=== PATIENT | male | born 1960 | race Caucasian/White ===

== ENCOUNTER → 2017-01-15 | Outpatient (CLI) | payer OTHER ==
[2017-01-15 09:45] LABS: ALT 76 U/L (21-72); AST 51 U/L (17-59); Cholesterol 173 mg/dL (<200); Creatine Kinase 91 U/L (55-170); HDL Cholesterol 44 mg/dL (40-60)
== END | disposition home or self-care (01) ==
LOC: LABWHC1 08:53
PROVIDERS: ATTEND Internal Medicine Cardiovascular Disease
DX: E78.2 Mixed hyperlipidemia (principal)
CPT/HCPCS: 36415; 80061; 82550; 84450; 84460

== ENCOUNTER → 2017-01-20 | Outpatient (CLI) | payer OTHER ==
--- NOTE | 2017-01-20 17:47 | XR ---
EXAMINATION TYPE: XR chest 2V DATE OF EXAM: 01/20/2017 COMPARISON: 06/27/2014 HISTORY: Cough TECHNIQUE: Frontal and lateral views of the chest are obtained. FINDINGS: Heart and mediastinum are normal. Lungs are clear. Diaphragm is normal. Bony thorax is int act. The pulmonary vascularity is normal. IMPRESSION: Normal chest. No change.
== END | disposition home or self-care (01) ==
LOC: RADXRMAIN 17:14
PROVIDERS: ATTEND Family Medicine
DX: R59.0 Localized enlarged lymph nodes (principal)
CPT/HCPCS: 71020

== ENCOUNTER → 2017-02-10 | Outpatient (CLI) | payer OTHER ==
[2017-02-10 18:22] LABS: Blood Urea Nitrogen 15 mg/dL (9-20); Non-African American GFR(MDRD) >60 (>60 ml/min/1.73 sqM)
--- NOTE | 2017-02-11 07:52 | CT ---
EXAMINATION TYPE: CT abdomen pelvis w con DATE OF EXAM: 02/10/2017 COMPARISON: NONE HISTORY: Right sided mid swelling and Left sided groin swelling per patient. Umbilical hernia per ord er. CT DLP: 1443.4 mGycm, Automated Exposure Control for Dose Reduction was Utilized. CONTRAST: CT scan of the abdomen and pelvis is performed with oral and with IV Contrast, patient injected with 100 mL of Omnipaque 300. FINDINGS: LUNG BASES: No significant abnormality is appreciated. LIVER/GB: Liver is diffusely low dense consistent with fatty infiltration. Prominent left hepatic lob e which is normal variant is noted. PANCREAS: No significant abnormality is seen. SPLEEN: There is tiny splenule lateral to spleen on axial image 22. There is 1.7 cm larger splenule a nterior inferior splenic hilum on axial image 25. ADRENALS: No significant abnormality is seen. KIDNEYS: No significant abnormality is seen. BOWEL: Oral contrast does not reach colonic level. There is no suspicious small or large bowel dilata tion seen. Normal-appearing appendix is seen descending from cecum. PROSTATE/SEMINAL VESICLES: Some central zone calcification is seen in normal size prostate gland. LYMPH NODES: No greater than 1cm abdominal or pelvic lymph nodes are appreciated. OSSEOUS STRUCTURES: No significant abnormality is seen. OTHER: There is mild to moderate calcified plaque in abdominal aorta extending into branch vessels. No suspicious umbilical or ventral wall hernia identified. No discrete inguinal hernia is seen. IMPRESSION: No significant finding is identified to account for patient's symptoms. No hernia is beatrice dent.
== END | disposition home or self-care (01) ==
LOC: RADCTMAIN 17:44
PROVIDERS: ATTEND Surgery
DX: K42.9 Umbilical hernia without obstruction or gangrene (principal)
CPT/HCPCS: 82565; 84520; 74177; 36415; Q9967

== ENCOUNTER → 2017-07-21 | Outpatient (CLI) | payer OTHER ==
--- NOTE | 2017-07-22 07:27 | US ---
EXAMINATION TYPE: US axilla RT DATE OF EXAM: 07/21/2017 COMPARISON: NONE CLINICAL HISTORY: Enlarged Lymph Nodes R59.9. Intermittent right axilla swelling x 1 year Right axilla: appears wnl IMPRESSION: No distinct abnormality identified.
--- NOTE | 2017-07-22 07:28 | US ---
EXAMINATION TYPE: US axilla LT DATE OF EXAM: 07/21/2017 COMPARISON: NONE CLINICAL HISTORY: Enlarged Lymph Nodes R59.9. Intermittent left axilla swelling x 1 year Left axilla: appears wnl IMPRESSION: No discrete abnormality seen.
--- NOTE | 2017-07-22 07:32 | XR ---
EXAMINATION TYPE: XR Hip Complete LT DATE OF EXAM: 07/21/2017 CLINICAL HISTORY: pain TECHNIQUE: AP and frogleg views of the left hip are obtained. COMPARISON: None. FINDINGS: There is no acute fracture/dislocation evident. Focal calcification adjacent to the great er trochanter compatible calcific tendinitis. The joint space appears within normal limits. The ove rlying soft tissue appears unremarkable. IMPRESSION: 1. There is no acute fracture or dislocation.ICD 10 NO FRACTURE, INITIAL EVALUATION
== END | disposition home or self-care (01) ==
LOC: RADUSWWP 15:34
PROVIDERS: ATTEND Family Medicine
DX: M25.552 Pain in left hip (principal); R59.9 Enlarged lymph nodes, unspecified
CPT/HCPCS: 73502

== ENCOUNTER → 2017-08-02 | Outpatient (CLI) | payer OTHER ==
[2017-08-02 19:16] LABS: ALT 75 U/L (21-72); AST 40 U/L (17-59); Albumin 4.8 g/dL (3.5-5.0); Alkaline Phosphatase 63 U/L (38-126); Anion Gap 18 mmol/L; Blood Urea Nitrogen 34 mg/dL (9-20); Calcium 10.6 mg/dL (8.4-10.2); Carbon Dioxide 26 mmol/L (22-30); Chloride 99 mmol/L (98-107); Glucose 154 mg/dL (74-99); Potassium 4.5 mmol/L (3.5-5.1); Sodium 143 mmol/L (137-145); Total Bilirubin 0.5 mg/dL (0.2-1.3); Total Protein 7.9 g/dL (6.3-8.2)
--- NOTE | 2017-08-02 22:36 | CT ---
EXAMINATION TYPE: CT abdomen pelvis w con DATE OF EXAM: 08/02/2017 COMPARISON: 02/10/2017 HISTORY: Enlarged axially and inguinal lymph nodes. CT DLP: 1561 mGycm Automated exposure control for dose reduction was used. TECHNIQUE: Helical acquisition of images was performed from the lung bases through the pelvis. CONTRAST: Performed with Oral Contrast and with IV Contrast, patient injected with 100ml mL of Isovue 300. FINDINGS: Lung bases are clear of consolidation. There is no pleural effusion. Heart size is normal. Liver spleen pancreas gallbladder appear normal. Bile ducts are not dilated. There is no adrenal mass. Kidneys show satisfactory contrast opacification. There is no hydronephrosi s. There is no retroperitoneal adenopathy. There is no ascites. Appendix appears normal. I see no int estinal wall thickening. There are no dilated loops. There are ordinary appearing bilateral inguinal lymph nodes that measure up to 1.3 cm. There is no evidence of a hernia. I see no bony destructive pr ocess. Lumbar spine is intact. IMPRESSION: NEGATIVE CT SCAN OF THE ABDOMEN AND PELVIS. THERE ARE A FEW INGUINAL LYMPH NODES OF DOUBTFUL SIGNIFIC ANCE AND APPEAR UNCHANGED COMPARED TO OLD EXAM.
== END | disposition home or self-care (01) ==
LOC: RADCTMAIN 18:36
PROVIDERS: ATTEND Family Medicine
DX: R59.9 Enlarged lymph nodes, unspecified (principal); I10 Essential (primary) hypertension
CPT/HCPCS: 80053; 74177; 36415; Q9967

== ENCOUNTER 2017-08-05 06:53 | Day surgery (SDC) | payer OTHER ==
[2017-08-03 14:09] VITALS: BMI 34.9
[~2017-08-05 06:53] MED LIST: LACTATED RINGERS 1,000 ML IV SCH
[2017-08-05 07:24] VITALS: TEMP 97.4
[2017-08-05] MEDS ORDERED: LIDOCAINE 1% 20 ML VIAL (10MG/ML) FOR IV START INTRADERMA ONE (07:33)
[2017-08-05 07:46] LABS: Glucose,Whole Blood 233 mg/dL (75-99)
[2017-08-05] MEDS ORDERED: PROPOFOL 10 MG/ML 20 ML VIAL IV ONE (08:27)
--- NOTE | 2017-08-05 08:46 | P.PCN ---
Date of Procedure: 08/05/17 Procedure(s) Performed: BRIEF HISTORY: Patient is a 57-year-old pleasant white male, scheduled for an elective colonoscopy as a part of screening for colorectal neoplasia. PROCEDURE PERFORMED: Colonoscopy. PREOPERATIVE DIAGNOSIS: Screening for colon cancer. IV sedation per Anesthesia. PROCEDURE: After informed consent was obtained, the patient, was brought into the endoscopy unit. IV sedation was administered by Anesthesia under continuous monitoring. Digital rectal examination was normal. Initially the Olympus CF- 160 flexible video colonoscope was then inserted in the rectum, gradually advanced into the cecum without any difficulty. Careful examination was performed as the scope was gradually being withdrawn. Ileocecal valve and the appendiceal orifice were visualized and appeared normal. Prep was excellent. Mucosa of the cecum, ascending colon, transverse colon, descending colon, sigmoid colon, and rectum appeared normal. Retroflexion was performed in the rectum and no lesions were seen. The patient tolerated the procedure well. IMPRESSION: Normal-appearing colon from rectum to cecum with no evidence of colorectal neoplasia . RECOMMENDATIONS: Findings of this examination were discussed with the patient as well as his family. He was advised to have a repeat screening colonoscopy in 10 years.
[2017-08-05 08:53] LABS: Glucose,Whole Blood 219 mg/dL (75-99)
[2017-08-05 08:54] VITALS: BP 126/67; PULSE 70; RESP 14
== END 2017-08-05 09:30 | disposition home or self-care (01) ==
LOC: ORWHC2ENDO 06:53
PROVIDERS: ATTEND Internal Medicine Gastroenterology
DX: Z12.11 Encounter for screening for malignant neoplasm of colon (principal); I10 Essential (primary) hypertension; E78.5 Hyperlipidemia, unspecified; I25.10 Atherosclerotic heart disease of native coronary artery without angina pectoris; E11.9 Type 2 diabetes mellitus without complications; Z79.84 Long term (current) use of oral hypoglycemic drugs; Z79.02 Long term (current) use of antithrombotics/antiplatelets; Z95.5 Presence of coronary angioplasty implant and graft; Z79.82 Long term (current) use of aspirin; Z79.899 Other long term (current) drug therapy
CPT/HCPCS: 45378; J2704

== ENCOUNTER 2017-08-09 03:09 | Emergency (ER) | payer OTHER ==
[2017-08-09] MEDS ORDERED: ONDANSETRON 4 MG/2 ML VIAL IVP STA (03:32)
--- NOTE | 2017-08-09 03:38 | ED ---
Nausea/Vomiting/Diarrhea HPI - General Chief complaint: Nausea/Vomiting/Diarrhea Stated complaint: vomiting Time Seen by Provider: 08/09/17 03:31 Source: patient Mode of arrival: ambulatory Limitations: no limitations - History of Present Illness Initial comments: This patient is a 57-year-old man who presents to be evaluated for the acute onset of severe nausea and vomiting, as well as spinning sensation. He states that things get particularly bad if he tries to move area in particular if he lies back from a seated position or if he goes to a seated position from supine , the symptoms become severe. Things are better if he remains still. He is not having any abdominal pain. No chest pain, palpitations or dyspnea. MD complaint: nausea, vomiting -: hour(s) Associated Abdominal Pain: No Consistency: constant Improves with: rest Worsens with: movement Associated Symptoms: denies other symptoms - Related Data Home Medications Medication Instructions Recorded Confirmed Aspirin 325 mg PO DAILY 06/27/14 08/09/17 Atorvastatin [Lipitor] 20 mg PO HS 08/03/17 08/09/17 Glimepiride [Amaryl] 2 mg PO [id number] 08/03/17 08/09/17 Metoprolol Tartrate [Lopressor] 50 mg PO BID 08/03/17 08/09/17 Olmesartan Medoxomil [Benicar] 40 mg PO DAILY 08/03/17 08/09/17 amLODIPine [Norvasc] 5 mg PO DAILY 08/03/17 08/09/17 Previous Rx's Medication Instructions Recorded Clopidogrel [Plavix] 75 mg PO DAILY #30 tab 07/02/14 metFORMIN HCL 1,000 mg PO BID #0 07/02/14 Meclizine [Antivert] 25 mg PO TID #20 tab 08/09/17 Allergies Allergy/AdvReac Type Severity Reaction Status Date / Time No Known Allergies Allergy Verified 08/09/17 03:16 Review of Systems ROS Statement: Those systems with pertinent positive or pertinent negative responses have been documented in the HPI. ROS Other: All systems not noted in ROS Statement are negative. Constitutional: Denies: fever, chills, weakness Eyes: Denies: eye pain, vision change Respiratory: Denies: cough, dyspnea Cardiovascular: Denies: chest pain, palpitations, edema, syncope Gastrointestinal: Reports: nausea, vomiting. Denies: abdominal pain, diarrhea Genitourinary: Denies: dysuria, hematuria Musculoskeletal: Denies: back pain Skin: Denies: rash Neurological: Reports: vertigo. Denies: headache, weakness, numbness, paresthesias, confusion Past Medical History Past Medical History: Chest Pain / Angina, Diabetes Mellitus, Hyperlipidemia, Sleep Apnea/CPAP/BIPAP History of Any Multi-Drug Resistant Organisms: None Reported Past Surgical History: No Surgical Hx Reported Past Psychological History: No Psychological Hx Reported Smoking Status: Never smoker Past Alcohol Use History: None Reported Past Drug Use History: None Reported General Exam Limitations: no limitations General appearance: alert, in no apparent distress Head exam: Present: atraumatic, normocephalic Eye exam: Present: normal appearance, PERRL, EOMI, nystagmus. Absent: scleral icterus, conjunctival injection ENT exam: Present: normal oropharynx, TM's normal bilaterally, normal external ear exam Neck exam: Present: normal inspection, full ROM Respiratory exam: Present: normal lung sounds bilaterally. Absent: respiratory distress, wheezes, rales, rhonchi, stridor Cardiovascular Exam: Present: regular rate, normal rhythm, normal heart sounds. Absent: systolic murmur, diastolic murmur, rubs, gallop GI/Abdominal exam: Present: soft. Absent: distended, tenderness, guarding, rebound, mass Extremities exam: Present: normal inspection, normal capillary refill. Absent: pedal edema, calf tenderness Back exam: Present: normal inspection. Absent: CVA tenderness (R), CVA tenderness (L) Neurological exam: Present: alert, oriented X3, CN II-XII intact. Absent: motor sensory deficit Skin exam: Present: warm, dry, intact, normal color. Absent: rash Course Vital Signs 08/09/17 08/09/17 08/09/17 03:12 03:36 04:48 Temperature 97.1 F L Pulse Rate 75 74 72 Respiratory 16 16 18 Rate Blood Pressure 175/84 179/88 164/77 O2 Sat by Pulse 99 99 99 Oximetry 08/09/17 08/09/17 05:41 06:44 Temperature Pulse Rate 73 74 Respiratory 14 15 Rate Blood Pressure 143/73 131/70 O2 Sat by Pulse 99 100 Oximetry Medical Decision Making - Medical Decision Making Patient's 57-year-old man with vertiginous symptoms, and severe nausea and vomiting. He has had previous episodes of this but cole's episode was much worse. He was not able to sit forward or lie back without having symptoms come on. He did have relief following meclizine. His workup is normal other than the elevated blood sugar which we did discuss. Patient will have follow-up and we did discuss return parameters. He is feeling better and does want to go home. - Lab Data Result diagrams: 08/09/17 03:29 08/09/17 03:29 Lab Results 08/09/17 08/09/17 08/09/17 Range/Units 03:29 03:29 03:29 WBC 10.5 (3.8-10.6) k/uL RBC 5.06 (4.30-5.90) m/uL Hgb 14.6 (13.0-17.5) gm/dL Hct 43.1 (39.0-53.0) % MCV 85.3 (80.0-100.0) fL MCH 28.8 (25.0-35.0) pg MCHC 33.8 (31.0-37.0) g/dL RDW 12.3 (11.5-15.5) % Plt Count 314 (150-450) k/uL Neutrophils % 64 % Lymphocytes % 23 % Monocytes % 5 % Eosinophils % 4 % Basophils % 0 % Neutrophils # 6.8 (1.3-7.7) k/uL Lymphocytes # 2.4 (1.0-4.8) k/uL Monocytes # 0.6 (0-1.0) k/uL Eosinophils # 0.4 (0-0.7) k/uL Basophils # 0.0 (0-0.2) k/uL Sodium 140 (137-145) mmol/L Potassium 4.5 (3.5-5.1) mmol/L Chloride 102 (98-107) mmol/L Carbon Dioxide 23 (22-30) mmol/L Anion Gap 15 mmol/L BUN 18 (9-20) mg/dL Creatinine 0.80 (0.66-1.25) mg/dL Est GFR (CKD-EPI)AfAm >90 (>60 ml/min/1.73 sqM) Est GFR (CKD-EPI)NonAf >90 (>60 ml/min/1.73 sqM) Glucose 230 H (74-99) mg/dL POC Glucose (mg/dL) (75-99) mg/dL POC Glu Rate Supervisor ID Calcium 9.6 (8.4-10.2) mg/dL Total Bilirubin 0.5 (0.2-1.3) mg/dL AST 38 (17-59) U/L ALT 67 (21-72) U/L Alkaline Phosphatase 74 (38-126) U/L Troponin I <0.012 (0.000-0.034) ng/mL Total Protein 7.4 (6.3-8.2) g/dL Albumin 4.3 (3.5-5.0) g/dL Amylase 54 (30-110) U/L Lipase 92 (23-300) U/L Urine Color Urine Appearance (Clear) Urine pH (5.0-8.0) Ur Specific [place] (1.001-1.035) Urine Protein (Negative) Urine Glucose (UA) (Negative) Urine Ketones (Negative) Urine Blood (Negative) Urine Nitrite (Negative) Urine Bilirubin (Negative) Urine Urobilinogen (<2.0) mg/dL Ur Leukocyte Esterase (Negative) 08/09/17 08/09/17 Range/Units 04:51 05:10 WBC (3.8-10.6) k/uL RBC (4.30-5.90) m/uL Hgb (13.0-17.5) gm/dL Hct (39.0-53.0) % MCV (80.0-100.0) fL MCH (25.0-35.0) pg MCHC (31.0-37.0) g/dL RDW (11.5-15.5) % Plt Count (150-450) k/uL Neutrophils % % Lymphocytes % % Monocytes % % Eosinophils % % Basophils % % Neutrophils # (1.3-7.7) k/uL Lymphocytes # (1.0-4.8) k/uL Monocytes # (0-1.0) k/uL Eosinophils # (0-0.7) k/uL Basophils # (0-0.2) k/uL Sodium (137-145) mmol/L Potassium (3.5-5.1) mmol/L Chloride (98-107) mmol/L Carbon Dioxide (22-30) mmol/L Anion Gap mmol/L BUN (9-20) mg/dL Creatinine (0.66-1.25) mg/dL Est GFR (CKD-EPI)AfAm (>60 ml/min/1.73 sqM) Est GFR (CKD-EPI)NonAf (>60 ml/min/1.73 sqM) Glucose (74-99) mg/dL POC Glucose (mg/dL) 274 H (75-99) mg/dL POC Glu Rate Supervisor ID Thiago Griffin Calcium (8.4-10.2) mg/dL Total Bilirubin (0.2-1.3) mg/dL AST (17-59) U/L ALT (21-72) U/L Alkaline Phosphatase (38-126) U/L Troponin I (0.000-0.034) ng/mL Total Protein (6.3-8.2) g/dL Albumin (3.5-5.0) g/dL Amylase (30-110) U/L Lipase (23-300) U/L Urine Color Yellow Urine Appearance Clear (Clear) Urine pH 5.5 (5.0-8.0) Ur Specific [place] 1.035 (1.001-1.035) Urine Protein Trace H (Negative) Urine Glucose (UA) 4+ H (Negative) Urine Ketones Negative (Negative) Urine Blood Negative (Negative) Urine Nitrite Negative (Negative) Urine Bilirubin Negative (Negative) Urine Urobilinogen <2.0 (<2.0) mg/dL Ur Leukocyte Esterase Negative (Negative) - EKG Data -: EKG Interpreted by Id EKG shows normal: sinus rhythm, axis (Normal), intervals (Normal), QRS complexes (Low-voltage), ST-T waves (Normal) Rate: normal (Rate approximately 74 bpm) Interpretation: other (Old septal infarct) Disposition Clinical Impression: Vertigo Disposition: HOME SELF-CARE Condition: Good Instructions: Vertigo (ED) Prescriptions: Meclizine [Antivert] 25 mg PO TID #20 tab Referrals: Jessica Barton MD [Primary Care Provider] - 1-2 days
[2017-08-09 03:43] LABS: Basophils % (A) 0 %; Eosinophils # (A) 0.4 k/uL (0-0.7); Eosinophils % (A) 4 %; HCT 43.1 % (39.0-53.0); HGB 14.6 gm/dL (13.0-17.5); Lymphocytes # (A) 2.4 k/uL (1.0-4.8); Lymphocytes % (A) 23 %; MCH 28.8 pg (25.0-35.0); MCHC 33.8 g/dL (31.0-37.0); MCV 85.3 fL (80.0-100.0); Monocytes # (A) 0.6 k/uL (0-1.0); Monocytes % (A) 5 %; Neutrophils # (A) 6.8 k/uL (1.3-7.7); Neutrophils % (A) 64 %; Platelet Count 314 k/uL (150-450); RBC 5.06 m/uL (4.30-5.90); RDW 12.3 % (11.5-15.5); WBC 10.5 k/uL (3.8-10.6)
[2017-08-09] MEDS ORDERED: RX INFO: IV CONTRAST WAS GIVEN 1 EACH MISC MISCELLANE PRN (03:49)
[2017-08-09] MEDS ORDERED: METOCLOPRAMIDE 5 MG/ML 2 ML VIAL IVP STA (03:53)
[2017-08-09 03:54] LABS: ALT 67 U/L (21-72); AST 38 U/L (17-59); Albumin 4.3 g/dL (3.5-5.0); Alkaline Phosphatase 74 U/L (38-126); Amylase 54 U/L (30-110); Anion Gap 15 mmol/L; Blood Urea Nitrogen 18 mg/dL (9-20); Calcium 9.6 mg/dL (8.4-10.2); Carbon Dioxide 23 mmol/L (22-30); Chloride 102 mmol/L (98-107); Glucose 230 mg/dL (74-99); Lipase 92 U/L (23-300); Potassium 4.5 mmol/L (3.5-5.1); Sodium 140 mmol/L (137-145); Total Bilirubin 0.5 mg/dL (0.2-1.3); Total Protein 7.4 g/dL (6.3-8.2)
[2017-08-09] MEDS ORDERED: INSULIN REGULAR 100 UNIT/ML VIAL SQ STA (04:08)
--- NOTE | 2017-08-09 04:29 | CT ---
EXAM: CT Angiography Head With Intravenous Contrast CLINICAL HISTORY: ITS.REASON CT Reason: assess vertebrobasilar circulation TECHNIQUE: Axial computed tomographic angiography images of the head with intravenous contrast using CT angiography protocol. CTDI is 102.2 mGy and DLP is 122.1 mGy-cm. This CT exam was performed using one or more of the following dose reduction techniques: automated exposure control, adjustment of the mA and/or kV according to patient size, and/or use of iterative reconstruction technique. MIP reconstructed images were created and reviewed. COMPARISON: 02/06/16 FINDINGS: Right internal carotid artery: No acute findings. Intracranial segment is patent with no significant stenosis. No aneurysm. Right anterior cerebral artery: Unremarkable. No occlusion or significant stenosis. No aneurysm. Right middle cerebral artery: Unremarkable. No occlusion or significant stenosis. No aneurysm. Right posterior cerebral artery: Unremarkable. No occlusion or significant stenosis. No aneurysm. Right vertebral artery: Unremarkable as visualized. Left internal carotid artery: No acute findings. Intracranial segment is patent with no significant stenosis. No aneurysm. Left anterior cerebral artery: Unremarkable. No occlusion or significant stenosis. No aneurysm. Left middle cerebral artery: Unremarkable. No occlusion or significant stenosis. No aneurysm. Left posterior cerebral artery: Unremarkable. No occlusion or significant stenosis. No aneurysm. Left vertebral artery: Unremarkable as visualized. Basilar artery: Unremarkable. No occlusion or significant stenosis. No aneurysm. No intracranial hemorrhage, mass, or shift in midline structure. IMPRESSION: Normal head CTA.
[2017-08-09 04:56] LABS: Glucose,Whole Blood 274 mg/dL (75-99)
[2017-08-09 05:16] LABS: Appearance,Urine Clear (Clear); Bilirubin,Urine Negative (Negative); Blood,Urine Negative (Negative); Color,Urine Yellow; Glucose,Urine (UA) 4+ (Negative); Ketones,Urine Negative (Negative); Leukocyte Esterase,Urine Negative (Negative); Nitrite,Urine Negative (Negative); PH, Urine 5.5 (5.0-8.0); Protein,Urine Trace (Negative); Specific Gravity,Urine 1.035 (1.001-1.035); Urobilinogen,Urine <2.0 mg/dL (<2.0)
[2017-08-09] MEDS ORDERED: MECLIZINE 12.5 MG TAB PO STA (05:36)
[2017-08-09 06:46] VITALS: BP 131/70; PULSE 74; RESP 15
[2017-08-09 07:13] VITALS: TEMP 97.4
== END 2017-08-09 07:13 | disposition home or self-care (01) ==
LOC: EC 03:09
DX: R42 Dizziness and giddiness (principal); H55.00 Unspecified nystagmus; R11.2 Nausea with vomiting, unspecified; E11.65 Type 2 diabetes mellitus with hyperglycemia; E78.5 Hyperlipidemia, unspecified; G47.30 Sleep apnea, unspecified; Z79.4 Long term (current) use of insulin; Z79.82 Long term (current) use of aspirin; Z79.84 Long term (current) use of oral hypoglycemic drugs; Z79.899 Other long term (current) drug therapy; Z86.79 Personal history of other diseases of the circulatory system; Z99.89 Dependence on other enabling machines and devices
CPT/HCPCS: 36415; 93005; 80053; 82150; 83690; 84484; 85025; 81003; 70496; 99284; 96374; 96375; J2765; J2405; Q9967

== ENCOUNTER → 2018-11-04 | Outpatient (CLI) | payer OTHER ==
[2018-11-04 17:03] LABS: African American GFR (CKD) 97.1 (60.0-200.0); Albumin 4.4 g/dL (3.80-4.90); Albumin/Globulin Ratio 2.1 (1.60-3.17); Anion Gap 10.8 mmol/L (4.00-12.00); Calcium 9.6 mg/dL (8.7-10.3); Carbon Dioxide 23.2 mmol/L (21.6-31.8); Globulin 2.1 g/dL (1.6-3.3); LDL Cholesterol,Calculated 145.4 mg/dL (0.0-131.0); Potassium 4.4 mmol/L (3.5-5.5); Total Bilirubin 0.7 mg/dL (0.3-1.2); Total Protein 6.5 g/dL (6.2-8.2); VLDL Calculation 38.6 mg/dL (5.00-40.00)
[2018-11-04 21:07] LABS: Hemoglobin A1C 8.7 % (4.0-6.0)
== END | disposition home or self-care (01) ==
LOC: LABWHC1 08:43
PROVIDERS: ATTEND Internal Medicine Endocrinology, Diabetes & Metabolism
DX: E11.65 Type 2 diabetes mellitus with hyperglycemia (principal)
CPT/HCPCS: 36415; 80053; 80061; 82043; 82570; 83036; 84443

== ENCOUNTER → 2019-05-19 | Outpatient (CLI) | payer OTHER ==
[2019-05-19 17:40] LABS: African American GFR (CKD) 110.3 (60.0-200.0); Albumin 4.5 g/dL (3.80-4.90); Albumin/Globulin Ratio 2.25 (1.60-3.17); Anion Gap 9.7 mmol/L (4.00-12.00); BUN/Creat Ratio 16.67 Ratio (12.00-20.00); Calcium 9.2 mg/dL (8.7-10.3); Carbon Dioxide 26.3 mmol/L (21.6-31.8); Chol/HDL Ratio 4.96; Non-African American GFR(CKD) 95.1 (60.0-200.0); Potassium 4.5 mmol/L (3.5-5.5); Total Bilirubin 0.7 mg/dL (0.2-1.2); Total Protein 6.5 g/dL (6.2-8.2)
[2019-05-19 18:18] LABS: Hemoglobin A1C 8.9 % (4.0-6.0)
== END ==
LOC: LABWHC1 09:21
PROVIDERS: ATTEND Internal Medicine Endocrinology, Diabetes & Metabolism
DX: E11.65 Type 2 diabetes mellitus with hyperglycemia (principal)
CPT/HCPCS: 36415; 80053; 80061; 82043; 82570; 83036; 84443

== ENCOUNTER → 2019-11-19 | Outpatient (CLI) | payer OTHER ==
[2019-11-19 15:26] LABS: African American GFR (CKD) 77.3 (60.0-200.0); Albumin 4.7 g/dL (3.80-4.90); Albumin/Globulin Ratio 1.88 (1.60-3.17); Anion Gap 9.2 mmol/L (4.00-12.00); BUN/Creat Ratio 14.17 Ratio (12.00-20.00); Bilirubin, Conjugated 0.2 mg/dL (0.20-0.40); Bilirubin,Unconjugated 0.6 mg/dL; Calcium 9.8 mg/dL (8.7-10.3); Carbon Dioxide 29.8 mmol/L (21.6-31.8); Chol/HDL Ratio 5.53; Globulin 2.5 g/dL (1.6-3.3); LDL Cholesterol,Calculated 168.4 mg/dL (0.0-131.0); Non-African American GFR(CKD) 66.7 (60.0-200.0); Potassium 4.8 mmol/L (3.5-5.5); Total Bilirubin 0.8 mg/dL (0.3-1.2); Total Protein 7.2 g/dL (6.2-8.2); VLDL Calculation 53.6 mg/dL (5.00-40.00)
[2019-11-19 16:00] LABS: Hepatitis A Antibody IgM Non-Reactive (Non-Reactive); Hepatitis B Core IgM Non-Reactive (Non-Reactive); Hepatitis B Surface Antigen Non-Reactive (Non-Reactive); Hepatitis C IgG Antibody Non-Reactive (Non-Reactive)
[2019-11-20 16:39] LABS: Hemoglobin A1C 10.3 % (4.0-6.0)
== END | disposition home or self-care (01) ==
LOC: LABWHC1 08:03
PROVIDERS: ATTEND Family Medicine
DX: E11.65 Type 2 diabetes mellitus with hyperglycemia (principal); E78.5 Hyperlipidemia, unspecified; R79.89 Other specified abnormal findings of blood chemistry
CPT/HCPCS: 36415; 80053; 80061; 80074; 82043; 82248; 82570; 82977; 83036; 84443

== ENCOUNTER → 2019-12-12 | Outpatient (CLI) | payer OTHER ==
--- NOTE | 2019-12-12 08:35 | US ---
EXAMINATION TYPE: US abdomen complete DATE OF EXAM: 12/12/2019 COMPARISON: NONE CLINICAL HISTORY: R94.5 Abn liver function test. EXAM MEASUREMENTS: Liver Length: 14.5 cm Gallbladder Wall: 0.2 cm CBD: 0.4 cm Spleen: 12.1 cm Right Kidney: 11.9 x 5.1 x 5.5 cm Left Kidney: 11.8 x 5.4 x 5.5 cm Patient of large body habitus carrying most of his weight in his abdomen. Severe overlying bowel gas, technically difficult limited study. Pancreas: Obscured by bowel gas Liver: Increased attenuation, decreased visualization of vessels suggestive of fatty infiltrate Gallbladder: No stones seen Evidence for sonographic Monroy's sign: no CBD: wnl, very limited visualization Spleen: wnl Right Kidney: No hydronephrosis or masses seen Left Kidney: No hydronephrosis or masses seen Upper IVC: wnl Abd Aorta: Obscured by overlying bowel gas/obesity IMPRESSION: 1. Visualized abdomen ultrasound is unremarkable. There is limitation due to bowel gas body habitus.
== END | disposition home or self-care (01) ==
LOC: RADUSWWP 07:11
PROVIDERS: ATTEND Family Medicine
DX: R14.3 Flatulence (principal)
CPT/HCPCS: 76700

== ENCOUNTER → 2020-04-04 | Outpatient (CLI) | payer OTHER ==
[2020-04-04 09:03] LABS: Basophils # (A) 0.1 k/uL (0-0.2); Basophils % (A) 1 %; Eosinophils # (A) 0.2 k/uL (0-0.7); Eosinophils % (A) 3 %; HCT 45.7 % (39.0-53.0); HGB 14.6 gm/dL (13.0-17.5); Lymphocytes # (A) 1.6 k/uL (1.0-4.8); Lymphocytes % (A) 18 %; MCH 28.9 pg (25.0-35.0); MCHC 31.9 g/dL (31.0-37.0); MCV 90.7 fL (80.0-100.0); Mean Platelet Volume 7.3; Monocytes # (A) 0.4 k/uL (0-1.0); Monocytes % (A) 4 %; Neutrophils # (A) 6.3 k/uL (1.3-7.7); Neutrophils % (A) 73 %; Platelet Count 284 k/uL (150-450); RBC 5.04 m/uL (4.30-5.90); RDW 12.6 % (11.5-15.5); WBC 8.7 k/uL (3.8-10.6)
[2020-04-04 09:25] LABS: Appearance,Urine Clear (Clear); Bilirubin,Urine Negative (Negative); Blood,Urine Negative (Negative); Color,Urine Yellow; Glucose,Urine (UA) 1+ (Negative); Ketones,Urine Negative (Negative); Leukocyte Esterase,Urine Negative (Negative); Mucus,Urine Rare /hpf; Nitrite,Urine Negative (Negative); PH, Urine 5.5 (5.0-8.0); Protein,Urine 1+ (Negative); RBC,Urine 1 /hpf (0-5); Specific Gravity,Urine 1.022 (1.001-1.035); Squamous Epithelial Cell,Urine <1 /hpf (0-4); Urobilinogen,Urine <2.0 mg/dL (<2.0); WBC,Urine 1 /hpf (0-5)
[2020-04-04 10:30] LABS: Erythrocyte Sedimentation Rate 12 mm/hr (0-15)
[2020-04-04 15:33] LABS: African American GFR (CKD) 85.9 (60.0-200.0); Albumin 4.6 g/dL (3.80-4.90); Albumin/Globulin Ratio 1.92 (1.60-3.17); Anion Gap 8.7 mmol/L (4.00-12.00); BUN/Creat Ratio 12.73 Ratio (12.00-20.00); Calcium 9.5 mg/dL (8.7-10.3); Carbon Dioxide 28.3 mmol/L (21.6-31.8); Chol/HDL Ratio 5.33; Globulin 2.4 g/dL (1.6-3.3); LDL Cholesterol,Calculated 167.2 mg/dL (0.0-131.0); Magnesium 1.6 mg/dL (1.5-2.4); Non-African American GFR(CKD) 74.1 (60.0-200.0); Potassium 4.5 mmol/L (3.5-5.5); Total Bilirubin 0.5 mg/dL (0.3-1.2); Uric Acid 6.8 mg/dL (3.7-8.7); VLDL Calculation 31.8 mg/dL (5.00-40.00)
[2020-04-04 15:36] LABS: Hemoglobin A1C 9.2 % (4.0-6.0)
[2020-04-04 17:37] LABS: Urine Creatinine 171.9 mg/dL
[2020-04-07 14:38] LABS: C-ANCA <1:20 Titer (<1:20)
== END | disposition home or self-care (01) ==
LOC: LABWHC1 08:15
PROVIDERS: ATTEND Internal Medicine Endocrinology, Diabetes & Metabolism
DX: E11.65 Type 2 diabetes mellitus with hyperglycemia (principal); I10 Essential (primary) hypertension; E78.5 Hyperlipidemia, unspecified; R79.89 Other specified abnormal findings of blood chemistry; R21 Rash and other nonspecific skin eruption; Z79.899 Other long term (current) drug therapy
CPT/HCPCS: 36415; 80053; 80061; 81001; 82043; 82306; 82550; 82570; 82977; 83036; 83615; 83735; 84443; 84550; 85025; 85652; 86038; 86140; 86255

== ENCOUNTER 2020-09-04 09:03 | Observation (INO) | payer OTHER ==
[2020-09-04 09:18] LABS: Glucose,Whole Blood 410 mg/dL (75-99)
--- NOTE | 2020-09-04 09:39 | ED ---
General Adult HPI - General Chief complaint: Neuro Symptoms/Deficit Stated complaint: trouble using arms & legs/lightheaded Time Seen by Provider: 09/04/20 09:29 Source: patient, family Mode of arrival: ambulatory Limitations: no limitations - History of Present Illness Initial comments: Dictation was produced using [employer] dictation software. please excuse any grammatical, word or spelling errors. This patient was cared for during a federal and state declared state of emergency secondary to Covid 19 Chief Complaint: 52-year-old male past medical history of coronary artery disease dyslipidemia presents today with right-sided episodic ataxia History of Present Illness: Patient is a 60-year-old male he has multiple comorbidities. Patient states today he had a episode where he felt like his right leg was given out. Furthermore he is at work when at around 7 AM he had discoordination with right upper extremity extended computer and was unable to find a keyboard with his right upper extremity. Patient states that while in e mergency department his symptoms resolve. His family members at bedside reports that he does appear to be at baseline. He denies any symptoms currently. States that earlier when his initial symptoms began he was unable to walk. States that he feels like his breathing is in a fog. Denies any pain complaints. The ROS documented in this emergency department record has been reviewed and confirmed by me. Those systems with pertinent positive or negative responses have been documented in the HPI. All other systems are other negative and/or noncontributory. PHYSICAL EXAM: General Impression: Alert and oriented x3, not in acute distress HEENT: Normocephalic atraumatic, extra-ocular movements intact, pupils equal and reactive to light bilaterally, mucous membranes moist. Cardiovascular: Heart regular rate and rhythm Chest: Able to complete full sentences, no retractions, no tachypnea Abdomen: abdomen soft, non-tender, non-distended, no organomegaly Musculoskeletal: Pulses present and equal in all extremities, no peripheral edema Motor: no focal deficits noted Neurological: CN II-XII grossly intact, no focal motor or sensory deficits noted, NIH of 0, gait intact, non-gait ataxic, all extremity non-ataxic, equal and full strength of all extremities, no drift. Skin: Intact with no visualized rashes Psych: Normal affect and mood ED course: 80-year-old male presents to the emergency department after episode of right-sided ataxia vital signs upon arrival are within acceptable limits. Patient's neurologic exam is completely benign. NIH of 0. Clinical presentation concerning for transient ischemic attack. Laboratory evaluation obtained. CBC unremarkable. Coag panel same. Metabolic panel shows all and a gap acidosis. His glucose is 428. Rest of labs unremarkable. Computed tomography scan of the brain shows no acute processes. Chest x-ray is nonacute. Patient reevaluated at bedside and found to be in stable medical condition. Patient has multiple stroke risk factors. We'll have patient admitted for neurologic consultation. Patient given aspirin. Patient is agreeable to plan. EKG interpretation: Ventricular rate 82, normal sinus rhythm, IL interval 140, QRS 82, QTC 420. No IL prolongation, no QTC prolongation, no ST or T-wave changes noted. Overall, this EKG is unremarkable - Related Data Home Medications Medication Instructions Recorded Confirmed Aspirin 325 mg PO DAILY 06/27/14 09/04/20 Glimepiride [Amaryl] 2 mg PO BID 08/03/17 09/04/20 Metoprolol Tartrate [Lopressor] 50 mg PO BID 08/03/17 09/04/20 Ascorbic Acid [Vitamin C] 1,000 mg PO DAILY 09/04/20 09/04/20 Cholecalciferol [Vitamin D3 (25 25 mcg PO DAILY 09/04/20 09/04/20 Mcg = 1000 Iu)] Insulin Glargine,Hum.rec.anlog See Protocol SQ HS 09/04/20 09/04/20 [Lantus Solostar] Moexipril HCl [Univasc] 15 mg PO BID 09/04/20 09/04/20 Multivitamins, Thera [Multivitamin 1 tab PO DAILY 09/04/20 09/04/20 (formulary)] Previous Rx's Medication Instructions Recorded metFORMIN HCL 1,000 mg PO BID #0 07/02/14 Allergies Allergy/AdvReac Type Severity Reaction Status Date / Time No Known Allergies Allergy Verified 09/04/20 10:34 Review of Systems ROS Statement: Those systems with pertinent positive or pertinent negative responses have been documented in the HPI. ROS Other: All systems not noted in ROS Statement are negative. Past Medical History Past Medical History: Chest Pain / Angina, Diabetes Mellitus, Hyperlipidemia, Sleep Apnea/CPAP/BIPAP History of Any Multi-Drug Resistant Organisms: None Reported Past Surgical History: No Surgical Hx Reported Past Psychological History: No Psychological Hx Reported Smoking Status: Never smoker Past Alcohol Use History: Occasional Past Drug Use History: None Reported General Exam Limitations: no limitations Course Vital Signs 09/04/20 09/04/20 09:09 10:09 Temperature 98.6 F Pulse Rate 84 86 Respiratory 18 16 Rate Blood Pressure 173/88 168/79 O2 Sat by Pulse 99 100 Oximetry Medical Decision Making - Lab Data Result diagrams: 09/04/20 09:41 09/04/20 09:41 Lab Results 09/04/20 09/04/20 09/04/20 Range/Units 09:17 09:41 09:41 WBC 8.8 (3.8-10.6) k/uL RBC 4.93 (4.30-5.90) m/uL Hgb 15.1 (13.0-17.5) gm/dL Hct 44.2 (39.0-53.0) % MCV 89.6 (80.0-100.0) fL MCH 30.6 (25.0-35.0) pg MCHC 34.1 (31.0-37.0) g/dL RDW 12.3 (11.5-15.5) % Plt Count 271 (150-450) k/uL MPV 7.4 Neutrophils % 75 % Lymphocytes % 15 % Monocytes % 6 % Eosinophils % 3 % Basophils % 1 % Neutrophils # 6.6 (1.3-7.7) k/uL Lymphocytes # 1.3 (1.0-4.8) k/uL Monocytes # 0.5 (0-1.0) k/uL Eosinophils # 0.3 (0-0.7) k/uL Basophils # 0.1 (0-0.2) k/uL PT 9.5 (9.0-12.0) sec INR 0.9 (<1.2) APTT 21.7 L (22.0-30.0) sec Sodium (137-145) mmol/L Potassium (3.5-5.1) mmol/L Chloride (98-107) mmol/L Carbon Dioxide (22-30) mmol/L Anion Gap mmol/L BUN (9-20) mg/dL Creatinine (0.66-1.25) mg/dL Est GFR (CKD-EPI)AfAm (>60 ml/min/1.73 sqM) Est GFR (CKD-EPI)NonAf (>60 ml/min/1.73 sqM) Glucose (74-99) mg/dL POC Glucose (mg/dL) 410 H (75-99) mg/dL POC Glu [employer] ID Robert Moreau Calcium (8.4-10.2) mg/dL Magnesium (1.6-2.3) mg/dL Troponin I (0.000-0.034) ng/mL 09/04/20 09/04/20 Range/Units 09:41 09:41 WBC (3.8-10.6) k/uL RBC (4.30-5.90) m/uL Hgb (13.0-17.5) gm/dL Hct (39.0-53.0) % MCV (80.0-100.0) fL MCH (25.0-35.0) pg MCHC (31.0-37.0) g/dL RDW (11.5-15.5) % Plt Count (150-450) k/uL MPV Neutrophils % % Lymphocytes % % Monocytes % % Eosinophils % % Basophils % % Neutrophils # (1.3-7.7) k/uL Lymphocytes # (1.0-4.8) k/uL Monocytes # (0-1.0) k/uL Eosinophils # (0-0.7) k/uL Basophils # (0-0.2) k/uL PT (9.0-12.0) sec INR (<1.2) APTT (22.0-30.0) sec Sodium 135 L (137-145) mmol/L Potassium 4.8 (3.5-5.1) mmol/L Chloride 102 (98-107) mmol/L Carbon Dioxide 19 L (22-30) mmol/L Anion Gap 14 mmol/L BUN 19 (9-20) mg/dL Creatinine 1.06 (0.66-1.25) mg/dL Est GFR (CKD-EPI)AfAm 90 (>60 ml/min/1.73 sqM) Est GFR (CKD-EPI)NonAf 78 (>60 ml/min/1.73 sqM) Glucose 428 H (74-99) mg/dL POC Glucose (mg/dL) (75-99) mg/dL POC Glu [employer] ID Calcium 9.5 (8.4-10.2) mg/dL Magnesium 1.7 (1.6-2.3) mg/dL Troponin I <0.012 (0.000-0.034) ng/mL Disposition Clinical Impression: TIA (transient ischemic attack) Disposition: ADMITTED IP TO THIS HOSP Condition: Fair Referrals: Jessica Barton MD [Primary Care Provider] - 1-2 days Decision Time: 10:46
[2020-09-04 09:58] LABS: Basophils # (A) 0.1 k/uL (0-0.2); Basophils % (A) 1 %; Eosinophils # (A) 0.3 k/uL (0-0.7); Eosinophils % (A) 3 %; HCT 44.2 % (39.0-53.0); HGB 15.1 gm/dL (13.0-17.5); Lymphocytes # (A) 1.3 k/uL (1.0-4.8); Lymphocytes % (A) 15 %; MCH 30.6 pg (25.0-35.0); MCHC 34.1 g/dL (31.0-37.0); MCV 89.6 fL (80.0-100.0); Mean Platelet Volume 7.4; Monocytes # (A) 0.5 k/uL (0-1.0); Monocytes % (A) 6 %; Neutrophils # (A) 6.6 k/uL (1.3-7.7); Neutrophils % (A) 75 %; Platelet Count 271 k/uL (150-450); RBC 4.93 m/uL (4.30-5.90); RDW 12.3 % (11.5-15.5); WBC 8.8 k/uL (3.8-10.6)
--- NOTE | 2020-09-04 10:06 | XR ---
EXAMINATION TYPE: XR chest 1V portable DATE OF EXAM: 09/04/2020 COMPARISON: NONE HISTORY: CVA TECHNIQUE: Single frontal view of the chest is obtained. FINDINGS: There is no focal air space opacity, pleural effusion, or pneumothorax seen. The cardiac silhouette size is within normal limits. The osseous structures are intact. IMPRESSION: No acute process.
--- NOTE | 2020-09-04 10:14 | CT ---
EXAMINATION TYPE: CT brain wo con DATE OF EXAM: 09/04/2020 COMPARISON: 08/09/2017. HISTORY: Right sided arm and leg numbness. CT DLP: 1141.4 mGycm Automated exposure control for dose reduction was used. FINDINGS: There is no acute intracranial hemorrhage, mass effect, or midline shift identified. The ventricles and sulci are within normal limits in size. The globes are intact and the visualized sinuses are monica ar. IMPRESSION: No acute intracranial hemorrhage, mass effect, or midline shift is seen. If concern for acute ischemi a consider MRI as clinically warranted.
[2020-09-04 10:16] LABS: INR 0.9 (<1.2); Prothrombin Time 9.5 sec (9.0-12.0)
[2020-09-04 10:27] LABS: Partial Thromboplastin Time 21.7 sec (22.0-30.0)
[2020-09-04 10:36] LABS: Calcium 9.5 mg/dL (8.4-10.2); Magnesium 1.7 mg/dL (1.6-2.3); Potassium 4.8 mmol/L (3.5-5.1)
[2020-09-04] MEDS ORDERED: SODIUM CHLORIDE 0.9% 1,000 ML IV STA (10:39)
[2020-09-04] MEDS ORDERED: ASPIRIN 81 MG PO STA (10:44)
[2020-09-04] MEDS ORDERED: NALOXONE 0.4 MG/ML 1 ML VIAL IV PRN (10:47)
[2020-09-04] MEDS ORDERED: SODIUM CHLORIDE 0.9% 1,000 ML IV SCH (11:00)
[2020-09-04] MEDS ORDERED: ATORVASTATIN 80 MG TAB PO STA (11:45)
[2020-09-04] MEDS: CHOLECALCIFEROL 25 MCG (1000 IU) TABLET PO SCH (12:21)
[2020-09-04] MEDS: ASCORBIC ACID 500 MG TAB PO SCH (12:21)
[2020-09-04] MEDS: SODIUM CHLORIDE 0.9% 1,000 ML IV SCH ×2 (12:22→21:03)
[2020-09-04 12:29] LABS: Glucose,Whole Blood 258 mg/dL (75-99)
[2020-09-04 12:29] LABS: Cholesterol 270 mg/dL (<200); HDL Cholesterol 40 mg/dL (40-60); LDL Cholesterol,Calculated 151 mg/dL (0-99); Triglycerides 397 mg/dL (<150)
[2020-09-04] MEDS: ENOXAPARIN 40 MG/0.4 ML SYRINGE SQ SCH (12:35)
[2020-09-04] MEDS: INSULIN ASPART (NovoLOG) 100 UNIT/ML VIAL SQ SCH ×3 (12:36→21:01)
[2020-09-04] MEDS ORDERED: CLOPIDOGREL 75 MG TAB PO STA (12:43)
--- NOTE | 2020-09-04 12:52 | US ---
EXAMINATION TYPE: US carotid duplex BILAT DATE OF EXAM: 09/04/2020 COMPARISON: NONE CLINICAL HISTORY: TIA. right leg weakness and inability to type EXAM MEASUREMENTS: RIGHT: Peak Systolic Velocity (PSV) cm/sec ----- Right CCA: 77.3 ----- Right ICA: 122.0 ----- Right ECA: 147.0 ICA/CCA ratio: 1.6 RIGHT: End Diastole cm/sec ----- Right CCA: 14.6 ----- Right ICA: 44.4 ----- Right ECA: 17.7 LEFT: Peak Systolic Velocity (PSV) cm/sec ----- Left CCA: 96.3 ----- Left ICA: 97.1 ----- Left ECA: 140.2 ICA/CCA ratio: 1.0 LEFT: End Diastole cm/sec ----- Left CCA: 18.2 ----- Left ICA: 34.4 ----- Left ECA: 18.5 VERTEBRALS (direction of flow): Right Vertebral: Antegrade Left Vertebral: Antegrade Rhythm: Normal Mild homogeneous plaque with no significant stenosis seen IMPRESSION: 1. Mild homogeneous plaque with no significant hemodynamic stenosis. Criteria for Assigning % of Stenosis / Diameter reduction (Estimation based on the indirect measurements of the internal carotid artery velocities (ICA PSV). 1. Normal (no stenosis)=ICA PSV < 125 cm/s: ratio < 2.0: ICA EDV<40 cm/s. 2. Less than 50% stenosis=ICA PSV < 125 cm/s: ratio < 2.0: ICA EDV<40 cm/s. 3. 50 to 69% stenosis=ICA PSV of 125 to 230 cm/s: ration 2.0 ? 4.0: ICA EDV 40-100 cm/s. 4. Greater than 70% stenosis to near occlusion= ICA PSV > 230 cm/s: ratio > 4.0: ICA EDV > 100 cm/s. 5. Near occlusion= ICA PSV velocities may be low or undetectable: variable ratio and ICA EDV. 6. Total occlusion=unable to detect flow.
--- NOTE | 2020-09-04 12:56 | P.CNNES ---
History of Present Illness Consult date: 09/04/20 Requesting physician: John Garcia Reason for Consult: Transient Right leg weakness with ataxia over right side concern for TIA. History of Present Illness: This is a 60-year-old gentleman with medical history of diabetes mellitus (for the past 15 years), hyperlipidemia, coronary artery disease, sleep apnea that presented to the emergency department on 09/04/2020 for right-sided weakness and ataxia. He was accompanied by his who is at bedside. The patient stated today at around 7am while at work he does that his entire look right lower extremity gave out and the episode lasted for about 3 minutes. Then the afterwards within 4 minutes he felt when he was trying to use the mouse and typing on the keyboard he felt like he could not control the right hand and he felt was a kind of clumsy but did not feel like was weak week by just felt clumsy and felt was con ataxic. He also felt he was having difficulty with his words as if like he slurring. This episode also lasted for the a few minutes then resolved. He felt normal until 9:00 in which his right leg gave out again and lasted few minutes then resolved. Currently he denies of any further weakness or ataxia. Denies of any sensory loss. Patient stated that he does not have any visual disturbance. But because of his diabetes and it on con trolled he has blurry vision but otherwise no visual disturbance during today's episode that. He had a similar episode in which she had right leg weakness and was briefly for a few minutes and that was about 2 days ago and it resolved and he didn't seek any medical attention. He denies of any stroke or TIAs in the past. He stated that he is on aspirin 325 daily and he is compliant with the medication. He said that he is prescribed statin but not sure what the name of the medication but he said that the it gives him mild joint pain so he does not take the medication. His sugar he stated that is not controlled. He denies of tobacco use. He drinks about the 2 cans of beer a day but on the weekend he might drink more. Workup in the hospital consisted of: Initial vital signs: Blood pressure of 173/80, heart rate of 84, respiratory of 18, temperature of 98.6 Fahrenheit oral and the pulse ox of 99% room air. CT of the head is reported as no acute intracranial hemorrhage, mass effect or midline shift is seen. If concern for acute ischemia consider MRI as clinically warranted. EKG is reported as normal sinus rhythm at. Septal infarct, age undetermined. Abnormal EKG. Initial POC glucose is 410 and the serum glucose was 428 that. Otherwise the sodium was 135 which is minimally low at the what the rest of the basic CBC and the metabolic labs are within normal. Review of Systems Review of system: The 12 point system was reviewed and apparent positive and negative per HPI. Past Medical History Past Medical History: Chest Pain / Angina, Diabetes Mellitus, Hyperlipidemia, Sleep Apnea/CPAP/BIPAP History of Any Multi-Drug Resistant Organisms: None Reported Past Surgical History: No Surgical Hx Reported Past Psychological History: No Psychological Hx Reported Smoking Status: Never smoker Past Alcohol Use History: Occasional Past Drug Use History: None Reported Medications and Allergies Home Medications Medication Instructions Recorded Confirmed Type Aspirin 325 mg PO DAILY 06/27/14 09/04/20 History metFORMIN HCL 1,000 mg PO BID #0 07/02/14 09/04/20 Rx Glimepiride [Amaryl] 2 mg PO BID 08/03/17 09/04/20 History Metoprolol Tartrate [Lopressor] 50 mg PO BID 08/03/17 09/04/20 History Ascorbic Acid [Vitamin C] 1,000 mg PO DAILY 09/04/20 09/04/20 History Cholecalciferol [Vitamin D3 (25 25 mcg PO DAILY 09/04/20 09/04/20 History Mcg = 1000 Iu)] Insulin Glargine,Hum.rec.anlog See Protocol SQ HS 09/04/20 09/04/20 History [Lantus Solostar] Moexipril HCl [Univasc] 15 mg PO BID 09/04/20 09/04/20 History Multivitamins, Thera [Multivitamin 1 tab PO DAILY 09/04/20 09/04/20 History (formulary)] Allergies Allergy/AdvReac Type Severity Reaction Status Date / Time No Known Allergies Allergy Verified 09/04/20 10:34 Physical Examination - Vital Signs Vital Signs: Vital Signs Temp Pulse Resp BP Pulse Ox 09/04/20 11:09 87 16 169/78 96 09/04/20 10:09 86 16 168/79 100 09/04/20 09:09 98.6 F 84 18 173/88 99 Intake and Output 09/03/20 09/04/20 09/04/20 22:59 06:59 14:59 Other: Weight 102.058 kg GENERAL: The patient is lying in bed and is not in acute distress. CHEST: The heart rate is regular rate rhythm. No murmurs to auscultation. No carotid bruit bilaterally. LUNG: Clear to auscultation bilaterally no wheezing noted throughout. Not labored breathing. ABDOMEN/GI: Bowel sounds present in all 4 quadrants. No tenderness to palpation throughout. NEUROLOGICAL: Higher mental function: The patient is awake, alert, oriented to self, place and time. Patient is following commands. No aphasia and no neglect. Cranial nerves: The pupils are round, equal and reactive to light and accommodation. Visual haskins are full to confrontation throughout. Extraocular movement is intact no nystagmus is noted. Facial sensation is normal to touch throughout. The facial strength is normal throughout. Hearing is normal bilaterally to hand rub. Tongue is midline and moved [id number] without any difficulty. No dysarthria is noted. Shoulder shrug is normal bilaterally. Motor: Gait is deferred. The strength is 5 over 5 throughout. Normal tone and bulk. Cerebellum: Normal finger to nose heel to chin bilaterally. Sensation: Sensation is normal to touch throughout. Reflexes (right/left):2+ throughout. Plantars are downgoing bilaterally. Results - Laboratory Findings CBC and BMP: 09/04/20 09:41 09/04/20 09:41 Abnormal Lab Findings: Abnormal Labs 09/04/20 09/04/20 09/04/20 09:17 09:41 09:41 APTT 21.7 L Sodium 135 L Carbon Dioxide 19 L Glucose 428 H POC Glucose (mg/dL) 410 H Assessment and Plan Assessment: * Transient ischemic attack (with recurrent right leg weakness and ataxia of the right hand. Has similar episode 2 days ago of right leg weakness and resolved). Unknown exact etiology at this time possible his risk factor of CAD, DM, hyperlipidemia and sleep apnea.. * Uncontrolled sugar (sugar in 400's) * Diabetes mellitus * Hyperlipidemia * Coronary artery disease * Sleep apnea Plan: * CT of the head is reported as no acute intracranial hemorrhage, mass effect or midline shift is seen. If concern for acute ischemia consider MRI as clinically warranted. * In the ED the patient received aspirin 324 mg once and was given Lipitor 80 mg once. I started the patient aspirin 325mg daily (home dose) and added Plavix 75mg daily. Patient is to be on dual antiplatelet for 21 days and after 21 days patient to stop aspirin and continue Plavix 75mg daily indefinetily. Loaded him on Plavix at 300 mg once. Started the patient on Lipitor 40 mg qhs (not 80mg since has joint pain). * MR the brain, 2-D echo (notified tech to do with bubble study) and carotid duplex are ordered by the primary team and are pending. * Ordered CTA head and neck STAT. * Also TSH, lipid panel are ordered are pending * Continuous cardiac monitoring is ordered * Every 4 hour neuro checks. * For the first 24 hours and keep the blood pressure permissive. Only treat of the solid blood pressure is more than 2020 and diastolic is more than 110 (this was notified to the patient's nurse). * We'll defer the rest of the medical management to the primary team. * The plan is discussed with the patient and his as well as his nurse. Jelani Johnson M.D. Neuro-hospitalist Time with Patient: Greater than 30
--- NOTE | 2020-09-04 13:59 | CT ---
EXAMINATION TYPE: CT angio head neck DATE OF EXAM: 09/04/2020 HISTORY: Right sided extremity issues. COMPARISON: Carotid ultrasound from earlier today. CTA head August 09, 2017 CT DLP: 905.5 mGycm. Automated Exposure Control for Dose Reduction was Utilized. TECHNIQUE: CTA scan of the head and neck are performed with IV Contrast, patient injected with 75 mL of Isovue 370, axial images are obtained, coronal and sagittal reformatted images are reviewed. Thre e-D reconstructed images are created on an independent workstation and reviewed. FINDINGS: Carotid/Vascular Structures: Mild calcified plaque in the aortic arch. Normal three-vessel origin. No significant plaque or stenosis. Normal origin right common carotid artery from right brachiocephalic artery. No significant plaque or stenosis in the common carotid arteries bilaterally. Mild periphera l calcified plaque bilateral carotid bulbs extending into proximal internal carotid arteries. No sign ificant stenosis in the internal carotid arteries bilaterally. Mild calcified plaque distal supraclin oid segments. Patent external carotid arteries without significant plaque or stenosis. Codominant vertebral arteries patent to basilar junction. No significant focal plaque or stenosis. Pa tent right posterior communicating artery. Hypoplastic left posterior communicating artery. No signif icant focal stenosis or aneurysm. Patent anterior communicating artery. No significant focal plaque o r stenosis in the anterior circulation. Other: No other significant abnormality. IMPRESSION: 1. No significant stenosis in common or internal carotid arteries bilaterally. Mild calcified plaque bilateral carotid bulb level correlates with recent carotid ultrasound study. 2. No significant stenosis or aneurysm at level of [place]. No significant change from prior CTA head.
[2020-09-04] MEDS ORDERED: INSULIN DETEMIR (LEVEMIR) 100 UNIT/ML SYR SQ SCH (14:30)
--- NOTE | 2020-09-04 14:34 | P.HPIM ---
History of Present Illness H&P Date: 09/04/20 Chief Complaint: Right arm and leg weakness This is a 60-year-old male with past medical history noted below significant for underlying diabetes, hyperlipidemia, and coronary artery disease that presented to the emergency room with right-sided weakness. Patient said that he was in his normal health this morning and went to work and while walking to work he noted that his right leg is very weak and is almost giving up on him. He sat down on the chair and felt clumsy and was unable to use his right hand to type on the keyboard. He said that he had weakness in both his arm and leg for a few minutes that soon resolved and patient was able to get up and drive his car back home and asked his to take him to the emergency room. While walking to the emergency room, he notices further weakness in the right lower extremity associated with ataxia. Patient denies any headache. No numbness or tingling anywhere. No recent falls. Patient denies any prior CVA. He is a nonsmoker. He was evaluated in the ER and will be admitted to the hospital for further management of his medical problems noted below. Review of Systems Review of system: 14 points review of systems were obtained and were negative except to what were mentioned in the HPI. Past Medical History Past Medical History: Coronary Artery Disease (CAD), Chest Pain / Angina, Diabetes Mellitus, GERD/Reflux, Hyperlipidemia, Hypertension Additional Past Medical History / Comment(s): IDDM type II, neuropathy bilateral hands/feet occasionally, past foot sores.. History of Any Multi-Drug Resistant Organisms: None Reported Past Surgical History: Heart Catheterization With Stent, Hernia Repair Additional Past Surgical History / Comment(s): 2014 PCI with stent, umbilical hernia repair, colonoscopy Past Anesthesia/Blood Transfusion Reactions: No Reported Reaction Date of Last Stent Placement:: 2014 Smoking Status: Never smoker - Past Family History Father Family Medical History: Vascular Disorder Additional Family Medical History / Comment(s): Father when pt was young of what pt thinks was a cerebral aneurysm. Mother Family Medical History: Cancer Additional Family Medical History / Comment(s): Mother of bone cancer at the age of 80yrs. Medications and Allergies Home Medications Medication Instructions Recorded Confirmed Type Aspirin 325 mg PO DAILY 06/27/14 09/04/20 History metFORMIN HCL 1,000 mg PO BID #0 07/02/14 09/04/20 Rx Glimepiride [Amaryl] 2 mg PO BID 08/03/17 09/04/20 History Metoprolol Tartrate [Lopressor] 50 mg PO BID 08/03/17 09/04/20 History Ascorbic Acid [Vitamin C] 1,000 mg PO DAILY 09/04/20 09/04/20 History Cholecalciferol [Vitamin D3 (25 25 mcg PO DAILY 09/04/20 09/04/20 History Mcg = 1000 Iu)] Insulin Glargine,Hum.rec.anlog See Protocol SQ HS 09/04/20 09/04/20 History [Lantus Solostar] Moexipril HCl [Univasc] 15 mg PO BID 09/04/20 09/04/20 History Multivitamins, Thera [Multivitamin 1 tab PO DAILY 09/04/20 09/04/20 History (formulary)] Allergies Allergy/AdvReac Type Severity Reaction Status Date / Time No Known Allergies Allergy Verified 09/04/20 10:34 Physical Exam Vitals: Vital Signs Temp Pulse Resp BP Pulse Ox 09/04/20 11:09 87 16 169/78 96 09/04/20 10:09 86 16 168/79 100 09/04/20 09:09 98.6 F 84 18 173/88 99 Intake and Output 09/03/20 09/04/20 09/04/20 22:59 06:59 14:59 Other: Weight 102.058 kg General: The patient is awake and alert, in no distress Eye: there is normal conjunctiva bilaterally. Neck: The neck is supple, there is no JVD. Cardiovascular: Normal S1-S2, no S3-S4, no murmurs. Respiratory: Lungs clear to auscultation bilaterally Gastrointestinal: Abdomen is soft, nontender Musculoskeletal: There is no pedal edema. Neurological:. Speech is normal. Skin: Skin is warm and dry Results CBC & Chem 7: 09/04/20 09:41 09/04/20 09:41 Labs: Abnormal Lab Results - Last 24 Hours (Table) 09/04/20 09/04/20 09/04/20 Range/Units 09:17 09:41 09:41 APTT 21.7 L (22.0-30.0) sec Sodium 135 L (137-145) mmol/L Carbon Dioxide 19 L (22-30) mmol/L Glucose 428 H (74-99) mg/dL POC Glucose (mg/dL) 410 H (75-99) mg/dL Triglycerides (<150) mg/dL Cholesterol (<200) mg/dL LDL Cholesterol, Calc (0-99) mg/dL 09/04/20 09/04/20 Range/Units 09:41 12:26 APTT (22.0-30.0) sec Sodium (137-145) mmol/L Carbon Dioxide (22-30) mmol/L Glucose (74-99) mg/dL POC Glucose (mg/dL) 258 H (75-99) mg/dL Triglycerides 397 H (<150) mg/dL Cholesterol 270 H (<200) mg/dL LDL Cholesterol, Calc 151 H (0-99) mg/dL Thrombosis Risk Factor Assmnt - Choose All That Apply Any of the Below Risk Factors Present?: Yes Each Factor Represents 1 point: Age 41-60 years, Obesity (BMI >25) Other Risk Factors: No Other congenital or acquired thrombophilia - If yes, enter type in comment: No Thrombosis Risk Factor Assessment Total Risk Factor Score: 2 Thrombosis Risk Factor Assessment Level: Low Risk Assessment and Plan Assessment: This is a 60-year-old male with past medical history noted below Presented to the emergency room with right sided arm and leg weakness. Patient was evaluated and admitted to the hospital for further management of his medical problems noted below. 1. TIA: Computed tomography scan of the head and CT angiogram of the head and neck in the ER with no acute findings. MRI of the brain ordered. Patient was seen and evaluated by neurology. He is maintained on aspirin at home. Plavix 75 mg daily added to his regimen. Echocardiogram ordered to rule out intracardiac source. PT/OT/speech pathology evaluation ordered. 2. Type 2 diabetes: Blood glucose not well controlled. Hold metformin and continue home dose of glipizide. Sliding scale insulin. A1c ordered. 3. Hyperlipidemia, started on Lipitor 80 mg at bedtime. LDL of 150 4. Essential hypertension, blood pressure not well controlled. Allow permissive hypertension, Resume home regimen and continue to monitor closely 5. Chronic medical problems: Coronary artery disease with prior stent placement, obstructive sleep apnea, obesity DVT prophylaxis with subcu Lovenox
[2020-09-04 17:30] LABS: Glucose,Whole Blood 195 mg/dL (75-99)
[2020-09-04 19:59] LABS: Glucose,Whole Blood 209 mg/dL (75-99)
[2020-09-04] MEDS: METOPROLOL TARTRATE 50 MG TAB PO SCH (21:01)
[2020-09-04] MEDS: lisinopriL 20 MG TAB PO SCH (21:01)
[2020-09-04] MEDS: GLIMEPIRIDE 2 MG TAB PO SCH (21:02)
[2020-09-04 21:14] LABS: Hemoglobin A1C 10.5 % (4.0-6.0)
[2020-09-05 07:23] LABS: Glucose,Whole Blood 161 mg/dL (75-99)
--- NOTE | 2020-09-05 07:41 | ECHOF ---
Referral Reason:TIA please perform bubble study. MEASUREMENTS -------- HEIGHT: 170.2 cm WEIGHT: 106.6 kg BP: RVIDd: 3.0 cm (< 3.3) IVSd: 1.1 cm (0.6 - 1.1) LVIDd: 4.6 cm (3.9 - 5.3) LVPWd: 1.1 cm (0.6 - 1.1) IVSs: 1.4 cm LVIDs: 3.2 cm LVPWs: 1.5 cm Ao Diam: 3.7 cm (2.0 - 3.7) AV Cusp: 1.8 cm (1.5 - 2.6) MV EXCURSION: 18.807 mm (> 18.000) MV EF SLOPE: 155 mm/s (70 - 150) EPSS: 0.2 cm MV E Denzel: 0.59 m/s MV DecT: 173 ms MV A Denzel: 0.72 m/s MV E/A Ratio: 0.82 RAP: 5.00 mmHg RVSP: 11.77 mmHg FINDINGS -------- Sinus rhythm. This was a technically adequate study. LV size, wall thickness and systolic function are normal, with an EF greater than 55%. The left trina tricular size is normal. The right ventricle is normal in size. The left atrial size is normal. The right atrial size is normal. Agitated Saline study is negative, no crossing at atrial level or right to left shunt noted. There is mild aortic valve sclerosis. There is no evidence of aortic regurgitation. The mitral valve is normal. Mild mitral regurgitation is present. The tricuspid valve appears structurally normal. Mild tricuspid regurgitation present. Right vent ricular systolic pressure is normal at < 35 mmHg. There is no pulmonic regurgitation present. The aortic root size is normal. There is no pericardial effusion. CONCLUSIONS -------- 1. LV size, wall thickness and systolic function are normal, with an EF greater than 55%. 2. The left atrial size is normal. 3. Agitated Saline study is negative, no crossing at atrial level or right to left shunt noted. 4. There is mild aortic valve sclerosis. 5. Mild mitral regurgitation is present. 6. Mild tricuspid regurgitation present. 7. There is no pericardial effusion. DATA CAPTURE CLERK: Nuzhat Marshall RDCS
[2020-09-05] MEDS: CHOLECALCIFEROL 25 MCG (1000 IU) TABLET PO SCH (08:58)
[2020-09-05] MEDS: ENOXAPARIN 40 MG/0.4 ML SYRINGE SQ SCH (08:58)
[2020-09-05] MEDS: ASCORBIC ACID 500 MG TAB PO SCH (08:58)
[2020-09-05] MEDS: INSULIN ASPART (NovoLOG) 100 UNIT/ML VIAL SQ SCH (08:58)
[2020-09-05] MEDS ORDERED: CLOPIDOGREL 75 MG TAB PO SCH (09:00)
[2020-09-05] MEDS ORDERED: MULTIVITAMINS, THERA 1 EACH TAB PO SCH (09:00)
[2020-09-05] MEDS ORDERED: ASPIRIN 325 MG TAB PO SCH (09:00)
[2020-09-05] MEDS: GLIMEPIRIDE 2 MG TAB PO SCH (09:01)
[2020-09-05] MEDS: lisinopriL 20 MG TAB PO SCH (09:07)
[2020-09-05] MEDS: METOPROLOL TARTRATE 50 MG TAB PO SCH (09:08)
[2020-09-05 09:59] VITALS: BMI 35.2
--- NOTE | 2020-09-05 11:04 | MR ---
MR brain without contrast HISTORY: Right-sided arm and leg numbness, rule out CVA Multiplanar multisequence imaging of the brain. Correlation to CT brain 09/04/2020 There is no restricted diffusion. Brain volume is age appropriate. Cerebellopontine angles, corpus ca llosum, pituitary, cervical medullary junction are within normal limits. There there are normal vascu lar flow voids. Periventricular scattered hyperintensities are present within the deep white matter o n inversion recovery T2-weighted sequences, approximately 15-20 lesions are present. Largest lesion m easures only approximately 4 mm. Orbits show symmetric appearance. There is no hemorrhage or hydrocep halus. Paranasal sinuses and mastoid air cells are well aerated. IMPRESSION: Nonspecific white matter demyelination of questionable clinical significance. No evident subacute ischemia.
[2020-09-05 11:22] VITALS: BP 154/82; PULSE 72; RESP 18; TEMP 98.6
[2020-09-05 11:53] LABS: Glucose,Whole Blood 183 mg/dL (75-99)
--- NOTE | 2020-09-05 11:57 | P.PN ---
Subjective Progress Note Date: 09/05/20 The patient was seen at bedside and stated was doing well. Denies any further episode of weakness or any new neurological problems. MRI the brain is reported as nonspecific white matter demyelinating of q uestionable clinical significant. No evident subacute ischemia. I personally reviewed the MRI and I felt there was a hyperintense signal over the posterior aspect of the right midbrain that is extremely small (that was seen in [facility] as well). I called the reading radiologist and he agreed and stated will relay that to the person that read it (spoke at around 12:00 on 09/05/20). Objective - Vital Signs Vital signs: Vital Signs Temp 98.6 F 09/05/20 07:00 Pulse 72 09/05/20 07:00 Resp 18 09/05/20 07:00 BP 154/82 09/05/20 07:00 Pulse Ox 96 09/05/20 07:00 Intake & Output 09/04/20 09/05/20 09/05/20 18:59 06:59 18:59 Intake Total 0 238 Balance 0 238 Weight 102.058 kg 102.058 kg Intake: Oral 0 238 Other: Voiding Method Toilet # Voids 1 1 - Exam GENERAL: The patient is lying in bed and is not in acute distress. NEUROLOGICAL: Higher mental function: The patient is awake, alert, oriented to self, place and time. Patient is following commands. No aphasia and no neglect. Cranial nerves: The pupils are round, equal and reactive to light and accommodation. Visual haskins are full to confrontation throughout. Extraocular movement is intact no nystagmus is noted. Facial sensation is normal to touch throughout. The facial strength is normal throughout. Hearing is normal bilaterally to hand rub. Tongue is midline and moved [id number] without any difficulty. No dysarthria is noted. Shoulder shrug is normal bilaterally. Motor: Gait is normal with normal arm swings. The strength is 5 over 5 throughout. Normal tone and bulk. Cerebellum: Normal finger to nose heel to chin bilaterally. Sensation: Sensation is normal to touch throughout. Reflexes (right/left):2+ throughout. Plantars are downgoing bilaterally. - Labs CBC & Chem 7: 09/04/20 09:41 09/04/20 09:41 Labs: Abnormal Lab Results - Last 24 Hours (Table) 09/04/20 09/04/20 09/04/20 Range/Units 09:41 09:41 12:26 POC Glucose (mg/dL) 258 H (75-99) mg/dL Hemoglobin A1c 10.5 H (4.0-6.0) % Triglycerides 397 H (<150) mg/dL Cholesterol 270 H (<200) mg/dL LDL Cholesterol, Calc 151 H (0-99) mg/dL 09/04/20 09/04/20 09/05/20 Range/Units 17:29 19:58 07:21 POC Glucose (mg/dL) 195 H 209 H 161 H (75-99) mg/dL Hemoglobin A1c (4.0-6.0) % Triglycerides (<150) mg/dL Cholesterol (<200) mg/dL LDL Cholesterol, Calc (0-99) mg/dL Assessment and Plan Assessment: * Subacute ischemic stroke with symptoms of right leg weakness and ataxia of right hand (MRI brain: small focal in posterior right midbrain) Unknown exact etiology Unknown exact etiology. Likely due to patient risk factor of CAD, DM, hyperlipidemia and sleep apnea. * Uncontrolled sugar (sugar in 400's) * Uncontorlled Diabetes mellitus (HbA1c 10.5) * Hyperlipidemia * Coronary artery disease * Sleep apnea * Morbid obesity Plan: * CT of the head is reported as no acute intracranial hemorrhage, mass effect or midline shift is seen. If concern for acute ischemia consider MRI as clinically warranted. * MRI the brain is reported as nonspecific white matter demyelinating of questionable clinical significant. No evident subacute ischemia. I personally reviewed the MRI and I felt there was a hyperintense signal over the posterior aspect of the right midbrain that is extremely small (that was seen in [facility] as well). I called the reading radiologist and he agreed and stated will relay that to the person that read it (spoke at around 12:00 on 09/05/20). * CT angiography of the head and neck was reported as no significant stenosis in the common or internal carotid artery bilaterally. Mild calcified plaque bilateral carotid bulb level correlates with a recent carotid ultrasound study. No significant stenosis or aneurysm at the level of [place] of [place]. No significant change from prior CTA head. * Carotid duplex is reported as mild homogeneous plaque with no significant hemodynamic stenosis. * 2-D echo was reported as left ventricular size, wall thickness are normal. Ejection fraction greater than 55%. Agitated saline study is negative and no crossing at the atrial level or the origin of the right to left shunt noted. * Lipid panel: Triglyceride of 397, cholesterol of 270, LDLs 151, HDL is 48. Goal in strokes/TIA is LDL less than 70. * TSH is 1.47 (normal). * Hemoglobin A1c is 10.5 which is uncontrolled * Continue aspirin 325mg daily (home dose) and added Plavix 75mg daily. Patient is to be on dual antiplatelet for 21 days and after 21 days patient to stop aspirin and continue Plavix 75mg daily indefinetily. Continue Lipitor 40 mg q hs (not 80mg since has joint pain). * I recommended JORGE but patient stated he would rather have it as outpatient. He stated he already follows-up with a brainer as outpatient and will speak with him regarding getting one. * Ordered event monitor. * Continuous cardiac monitoring is ordered * Every 4 hour neuro checks. * Ordered event monitor. * We'll defer the rest of the medical management to the primary team. The plan is discussed with the patient and his as well as his nurse. Jelani Johnson M.D. Neuro-hospitalist Time with Patient: Less than 30
--- NOTE | 2020-09-05 12:12 | P.DS ---
Providers Date of admission: 09/04/20 10:47 Expected date of discharge: 09/05/20 Attending physician: Fabiano Worrell Consults: 09/04/20 10:45 Consult Physician Routine Consulting Provider: Jelani Johnson Consult Reason/Comments: tia Do you want consulting provider notified?: Yes [facility] Course: This is a 60-year-old male with past medical history noted below Presented to the emergency room with right sided arm and leg weakness. Patient was evaluated and admitted to the hospital for further management of his medical problems noted below. 1. TIA: Computed tomography scan of the head and CT angiogram of the head and neck in the ER with no acute findings. MRI of the brain with no acute findings. Patient was seen and evaluated by neurology. He is maintained on aspirin at home. Plavix 75 mg daily added to his regimen. Echocardiogram with no intracardiac source or shunt. PT/OT/speech pathology evaluation ordered. 2. Type 2 diabetes: Not well controlled. A1c 10.5. Patient takes Lantus 25-30 units at bedtime. I advised him to take 30 units scheduled at bedtime. Follow- up with PCP for further diabetes management 3. Hyperlipidemia, started on Lipitor 80 mg at bedtime. LDL of 150 4. Essential hypertension, Allowed permissive hypertension, Resume home regimen and continue to monitor closely 5. Chronic medical problems: Coronary artery disease with prior stent placement, obstructive sleep apnea, obesity Patient was advised to continue aspirin and Plavix for the next 4 weeks then discontinue aspirin afterward. He verbalizes understanding of the plan. He will be discharged home in a stable condition. Patient Condition at Discharge: Stable Plan - Discharge Summary Discharge Rx Participant: No New Discharge Prescriptions: New Atorvastatin [Lipitor] 80 mg PO HS #30 tab Clopidogrel [Plavix] 75 mg PO DAILY #30 tab Continue Aspirin 325 mg PO DAILY metFORMIN HCL 1,000 mg PO BID #0 Glimepiride [Amaryl] 2 mg PO BID Metoprolol Tartrate [Lopressor] 50 mg PO BID Multivitamins, Thera [Multivitamin (formulary)] 1 tab PO DAILY Moexipril HCl [Univasc] 15 mg PO BID Cholecalciferol [Vitamin D3 (25 Mcg = 1000 Iu)] 25 mcg PO DAILY Ascorbic Acid [Vitamin C] 1,000 mg PO DAILY Changed Insulin Glargine,Hum.rec.anlog [Lantus Solostar] 30 unit SQ HS #0 Discharge Medication List Aspirin 325 mg PO DAILY 06/27/14 [History] metFORMIN HCL 1,000 mg PO BID #0 07/02/14 [Rx] Glimepiride [Amaryl] 2 mg PO BID 08/03/17 [History] Metoprolol Tartrate [Lopressor] 50 mg PO BID 08/03/17 [History] Ascorbic Acid [Vitamin C] 1,000 mg PO DAILY 09/04/20 [History] Cholecalciferol [Vitamin D3 (25 Mcg = 1000 Iu)] 25 mcg PO DAILY 09/04/20 [History] Moexipril HCl [Univasc] 15 mg PO BID 09/04/20 [History] Multivitamins, Thera [Multivitamin (formulary)] 1 tab PO DAILY 09/04/20 [History] Atorvastatin [Lipitor] 80 mg PO HS #30 tab 09/05/20 [Rx] Clopidogrel [Plavix] 75 mg PO DAILY #30 tab 09/05/20 [Rx] Insulin Glargine,Hum.rec.anlog [Lantus Solostar] 30 unit SQ HS #0 09/05/20 [Rx] Follow up Appointment(s)/Referral(s): Jessica Barton MD [Primary Care Provider] - 1-2 days Discharge Disposition: HOME SELF-CARE
[2020-09-05] MEDS ORDERED: ATORVASTATIN 40 MG TAB PO SCH (21:00)
[2020-09-05] MEDS ORDERED: ATORVASTATIN 80 MG TAB PO SCH (21:00)
== END 2020-09-05 15:20 | disposition home or self-care (01) ==
LOC: EC 09:03 → 6NMEDSUR 10:47
PROVIDERS: ADMIT Internal Medicine; ATTEND Internal Medicine
DX: G45.9 Transient cerebral ischemic attack, unspecified (principal); E11.65 Type 2 diabetes mellitus with hyperglycemia; E87.2 Acidosis; I25.10 Atherosclerotic heart disease of native coronary artery without angina pectoris; E78.5 Hyperlipidemia, unspecified; I10 Essential (primary) hypertension; K21.9 Gastro-esophageal reflux disease without esophagitis; E11.42 Type 2 diabetes mellitus with diabetic polyneuropathy; E66.01 Morbid (severe) obesity due to excess calories; Z68.35 Body mass index [BMI] 35.0-35.9, adult; G47.33 Obstructive sleep apnea (adult) (pediatric); Z99.89 Dependence on other enabling machines and devices; Z79.82 Long term (current) use of aspirin; Z79.4 Long term (current) use of insulin; Z79.899 Other long term (current) drug therapy; Z95.5 Presence of coronary angioplasty implant and graft; Z98.890 Other specified postprocedural states; Z82.49 Family history of ischemic heart disease and other diseases of the circulatory system; Z80.8 Family history of malignant neoplasm of other organs or systems
CPT/HCPCS: 96360; 96372 ×2; 99285; 36415; 93005; 93306; 97161; 97165; 80061; 80048; 84443; 83735; 84484; 85025; 85610; 85730; 83036; 87636; 71045; 93880; 70496; 70450; 70498; 70551; G0378 ×2; J1650 ×2; Q9967

== ENCOUNTER 2020-09-06 13:21 | Emergency (ER) | payer OTHER ==
[2020-09-06 13:33] VITALS: TEMP 98.5
[2020-09-06] MEDS ORDERED: SODIUM CHLORIDE 0.9% 1,000 ML IV STA (13:36)
[2020-09-06 14:01] LABS: Basophils # (A) 0.1 k/uL (0-0.2); Basophils % (A) 1 %; Eosinophils # (A) 0.3 k/uL (0-0.7); Eosinophils % (A) 3 %; HCT 44.9 % (39.0-53.0); Lymphocytes # (A) 1.5 k/uL (1.0-4.8); Lymphocytes % (A) 16 %; MCH 29.7 pg (25.0-35.0); MCHC 33.3 g/dL (31.0-37.0); MCV 89.3 fL (80.0-100.0); Mean Platelet Volume 7.2; Monocytes # (A) 0.4 k/uL (0-1.0); Monocytes % (A) 5 %; Neutrophils # (A) 6.6 k/uL (1.3-7.7); Neutrophils % (A) 74 %; Platelet Count 257 k/uL (150-450); RBC 5.03 m/uL (4.30-5.90); RDW 12.4 % (11.5-15.5); WBC 8.9 k/uL (3.8-10.6)
--- NOTE | 2020-09-06 14:09 | ED ---
Neuro HPI - General Chief Complaint: Neuro Symptoms/Deficit Stated Complaint: revisit - rt sided weakness, facial numbness Time Seen by Provider: 09/06/20 13:35 Source: patient, RN notes reviewed, old records reviewed Mode of arrival: wheelchair Limitations: no limitations - History of Present Illness Is the patient presenting with stroke symptoms?: No -: hour(s), days(s) Initial Comments: This is a 52-year-old male for recurrent CVA type symptoms. Patient right-sided weakness right leg weakness. This is initiated patient does episodically have with recent ER visits and inpatient hospitalization this past week. Patient symptoms continue to resolve well. Currently in the emergency department. Taking all medications as prescribed including aspirin Plavix. No recent head trauma. No other complaints no current headache. Patient denies current neurological complaint Location: right leg History of same: Yes Place: home Severity: mild Quality: weak, numb, tingling Improves With: time Worsens With: none On Anticoagulants: Yes Context: sudden onset Associated Symptoms: denies other symptoms Treatments Prior to Arrival: none - Related Data Home Medications: Home Medications Medication Instructions Recorded Confirmed Aspirin 325 mg PO DAILY 06/27/14 09/04/20 Glimepiride [Amaryl] 2 mg PO BID 08/03/17 09/04/20 Metoprolol Tartrate [Lopressor] 50 mg PO BID 08/03/17 09/04/20 Ascorbic Acid [Vitamin C] 1,000 mg PO DAILY 09/04/20 09/04/20 Cholecalciferol [Vitamin D3 (25 25 mcg PO DAILY 09/04/20 09/04/20 Mcg = 1000 Iu)] Moexipril HCl [Univasc] 15 mg PO BID 09/04/20 09/04/20 Multivitamins, Thera [Multivitamin 1 tab PO DAILY 09/04/20 09/04/20 (formulary)] Previous Rx's Medication Instructions Recorded metFORMIN HCL 1,000 mg PO BID #0 07/02/14 Atorvastatin [Lipitor] 80 mg PO HS #30 tab 09/05/20 Clopidogrel [Plavix] 75 mg PO DAILY #30 tab 09/05/20 Insulin Glargine,Hum.rec.anlog 30 unit SQ HS #0 09/05/20 [Lantus Solostar] Allergies/Adverse Reactions: Allergies Allergy/AdvReac Type Severity Reaction Status Date / Time No Known Allergies Allergy Verified 09/06/20 13:33 Review of Systems ROS Statement: Those systems with pertinent positive or pertinent negative responses have been documented in the HPI. ROS Other: All systems not noted in ROS Statement are negative. General Exam - General Exam Comments Initial Comments: NIH 0 Limitations: no limitations General appearance: alert, in no apparent distress Head exam: Present: atraumatic, normocephalic, normal inspection Eye exam: Present: normal appearance, PERRL, EOMI. Absent: scleral icterus, conjunctival injection, periorbital swelling ENT exam: Present: normal exam, mucous membranes moist Neck exam: Present: normal inspection. Absent: tenderness, meningismus, lymphadenopathy Respiratory exam: Present: normal lung sounds bilaterally. Absent: respiratory distress, wheezes, rales, rhonchi, stridor Cardiovascular Exam: Present: regular rate, normal rhythm, normal heart sounds. Absent: systolic murmur, diastolic murmur, rubs, gallop, clicks GI/Abdominal exam: Present: soft, normal bowel sounds. Absent: distended, tenderness, guarding, rebound, rigid Extremities exam: Present: normal inspection, full ROM, normal capillary refill. Absent: tenderness, pedal edema, joint swelling, calf tenderness Back exam: Present: normal inspection Neurological exam: Present: alert, oriented X3, CN II-XII intact Psychiatric exam: Present: normal affect, normal mood Skin exam: Present: warm, dry, intact, normal color. Absent: rash Stroke [facility] - Lab Data Result diagrams: 09/06/20 13:48 09/06/20 13:48 Lab Results 09/06/20 09/06/20 09/06/20 Range/Units 13:48 13:48 13:48 WBC 8.9 (3.8-10.6) k/uL RBC 5.03 (4.30-5.90) m/uL Hgb 15.0 (13.0-17.5) gm/dL Hct 44.9 (39.0-53.0) % MCV 89.3 (80.0-100.0) fL MCH 29.7 (25.0-35.0) pg MCHC 33.3 (31.0-37.0) g/dL RDW 12.4 (11.5-15.5) % Plt Count 257 (150-450) k/uL MPV 7.2 Neutrophils % 74 % Lymphocytes % 16 % Monocytes % 5 % Eosinophils % 3 % Basophils % 1 % Neutrophils # 6.6 (1.3-7.7) k/uL Lymphocytes # 1.5 (1.0-4.8) k/uL Monocytes # 0.4 (0-1.0) k/uL Eosinophils # 0.3 (0-0.7) k/uL Basophils # 0.1 (0-0.2) k/uL PT 9.6 (9.0-12.0) sec INR 0.9 (<1.2) APTT 22.5 (22.0-30.0) sec Sodium 136 L (137-145) mmol/L Potassium 4.8 (3.5-5.1) mmol/L Chloride 103 (98-107) mmol/L Carbon Dioxide 23 (22-30) mmol/L Anion Gap 10 mmol/L BUN 16 (9-20) mg/dL Creatinine 0.94 (0.66-1.25) mg/dL Est GFR (CKD-EPI)AfAm >90 (>60 ml/min/1.73 sqM) Est GFR (CKD-EPI)NonAf 89 (>60 ml/min/1.73 sqM) Glucose 306 H (74-99) mg/dL Calcium 9.4 (8.4-10.2) mg/dL Phosphorus 3.7 (2.5-4.5) mg/dL Magnesium 1.7 (1.6-2.3) mg/dL Total Bilirubin 0.5 (0.2-1.3) mg/dL AST 71 H (17-59) U/L ALT 90 H (4-49) U/L Alkaline Phosphatase 69 (38-126) U/L Creatine Kinase 109 (55-170) U/L Troponin I (0.000-0.034) ng/mL NT-Pro-B Natriuret Pep pg/mL Total Protein 7.3 (6.3-8.2) g/dL Albumin 4.4 (3.5-5.0) g/dL 09/06/20 09/06/20 Range/Units 13:48 13:48 WBC (3.8-10.6) k/uL RBC (4.30-5.90) m/uL Hgb (13.0-17.5) gm/dL Hct (39.0-53.0) % MCV (80.0-100.0) fL MCH (25.0-35.0) pg MCHC (31.0-37.0) g/dL RDW (11.5-15.5) % Plt Count (150-450) k/uL MPV Neutrophils % % Lymphocytes % % Monocytes % % Eosinophils % % Basophils % % Neutrophils # (1.3-7.7) k/uL Lymphocytes # (1.0-4.8) k/uL Monocytes # (0-1.0) k/uL Eosinophils # (0-0.7) k/uL Basophils # (0-0.2) k/uL PT (9.0-12.0) sec INR (<1.2) APTT (22.0-30.0) sec Sodium (137-145) mmol/L Potassium (3.5-5.1) mmol/L Chloride (98-107) mmol/L Carbon Dioxide (22-30) mmol/L Anion Gap mmol/L BUN (9-20) mg/dL Creatinine (0.66-1.25) mg/dL Est GFR (CKD-EPI)AfAm (>60 ml/min/1.73 sqM) Est GFR (CKD-EPI)NonAf (>60 ml/min/1.73 sqM) Glucose (74-99) mg/dL Calcium (8.4-10.2) mg/dL Phosphorus (2.5-4.5) mg/dL Magnesium (1.6-2.3) mg/dL Total Bilirubin (0.2-1.3) mg/dL AST (17-59) U/L ALT (4-49) U/L Alkaline Phosphatase (38-126) U/L Creatine Kinase (55-170) U/L Troponin I <0.012 (0.000-0.034) ng/mL NT-Pro-B Natriuret Pep 118 pg/mL Total Protein (6.3-8.2) g/dL Albumin (3.5-5.0) g/dL - NIH Stroke Scale 1a. Level of Consciousness: (0) alert 1b. LOC Questions: (0) answers correctly 1c. LOC Commands: (0) performs tasks correctly 2. Best Gaze: (0) normal 3. Visual: (0) no visual loss 4. Facial Palsy: (0) normal symmetrical movement 5a. Motor Arm Left: (0) no drift 5b. Motor Arm Right: (0) no drift 6a. Motor Leg Left: (0) no drift 6b. Motor Leg Right: (0) no drift 7. Limb Ataxia: (0) absent 8. Sensory: (0) normal 9. Best Language: (0) no aphasia 10. Dysarthria: (0) normal 11. Extinction/Inattention: (0) no abnormality - Thrombolytic Inclusion/Exclusion Thrombolytic Contraindications: NIH 0 - Medical Decision Making Possible recurrent CVA TIA. Recent inpatient hospitalization for same. At this point patient remains a symptomatically felt ER still continual medication return to ER symptoms worsen or return - Radiology Data Radiology results: report reviewed (CT brain is negative for acute disease), image reviewed - EKG Data -: EKG Interpreted by Me (EKG shows sinus rhythm 71 WV 136 QRS 78 QTc 419) Past Medical History Past Medical History: Chest Pain / Angina, CVA/TIA, Diabetes Mellitus, Hyperlipidemia, Sleep Apnea/CPAP/BIPAP Additional Past Medical History / Comment(s): IDDM type II, neuropathy bilateral hands/feet occasionally, past foot sores.. History of Any Multi-Drug Resistant Organisms: None Reported Past Surgical History: No Surgical Hx Reported Additional Past Surgical History / Comment(s): 2014 PCI with stent, umbilical hernia repair, colonoscopy Past Anesthesia/Blood Transfusion Reactions: No Reported Reaction Date of Last Stent Placement:: 2014 Past Psychological History: No Psychological Hx Reported Smoking Status: Never smoker Past Alcohol Use History: Occasional Past Drug Use History: None Reported - Past Family History Father Family Medical History: Vascular Disorder Additional Family Medical History / Comment(s): Father when pt was young of what pt thinks was a cerebral aneurysm. Mother Family Medical History: Cancer Additional Family Medical History / Comment(s): Mother of bone cancer at the age of 80yrs. Course Vital Signs 09/06/20 09/06/20 09/06/20 13:28 14:27 15:02 Temperature 98.5 F Pulse Rate 68 63 63 Respiratory 20 18 18 Rate Blood Pressure 169/90 161/82 151/80 O2 Sat by Pulse 97 98 97 Oximetry - Reevaluation(s) Reevaluation #1: 09/06/20 16:35 Medical records reviewed 09/06/20 16:35 Prior inpatient hospitalization is reviewed including MRI TIA Reevaluation #2: 09/06/20 15:35 Patient informed results here in the ER questions answered Reevaluation #3: 09/06/20 15:35 Patient feels good for discharge home Disposition Clinical Impression: Transient cerebral ischemia Disposition: HOME SELF-CARE Condition: Good Instructions (If sedation given, give patient instructions): Transient Ischemic Attack (ED) Is patient prescribed a controlled substance at d/c from ED?: No Referrals: Jessica Barton MD [Primary Care Provider] - 1-2 days
[2020-09-06 14:11] LABS: INR 0.9 (<1.2); Partial Thromboplastin Time 22.5 sec (22.0-30.0); Prothrombin Time 9.6 sec (9.0-12.0)
[2020-09-06 14:14] LABS: ALT 90 U/L (4-49); AST 71 U/L (17-59); African American GFR (CKD) >90 (>60 ml/min/1.73 sqM); Albumin 4.4 g/dL (3.5-5.0); Alkaline Phosphatase 69 U/L (38-126); Anion Gap 10 mmol/L; Blood Urea Nitrogen 16 mg/dL (9-20); Calcium 9.4 mg/dL (8.4-10.2); Carbon Dioxide 23 mmol/L (22-30); Chloride 103 mmol/L (98-107); Creatine Kinase 109 U/L (55-170); Glucose 306 mg/dL (74-99); Magnesium 1.7 mg/dL (1.6-2.3); Non-African American GFR(CKD) 89 (>60 ml/min/1.73 sqM); Phosphorus 3.7 mg/dL (2.5-4.5); Potassium 4.8 mmol/L (3.5-5.1); Sodium 136 mmol/L (137-145); Total Bilirubin 0.5 mg/dL (0.2-1.3); Total Protein 7.3 g/dL (6.3-8.2)
--- NOTE | 2020-09-06 14:24 | XR ---
EXAMINATION TYPE: XR chest 2V DATE OF EXAM: 09/06/2020 COMPARISON: 09/04/2020 HISTORY: CVA TECHNIQUE: 2 views FINDINGS: Heart and mediastinum are normal. Lungs are clear. Diaphragm is normal. Bony thorax appears normal. IMPRESSION: Normal chest. No change.
--- NOTE | 2020-09-06 14:26 | CT ---
EXAMINATION TYPE: CT brain wo con DATE OF EXAM: 09/06/2020 COMPARISON: 09/04/2020 HISTORY: Right leg weakness. CT DLP: 1099.4 mGycm Automated exposure control for dose reduction was used. There is mild cerebral atrophy. There is no mass effect nor midline shift. There is no sign of intrac ranial hemorrhage. Calvarium is intact. There is no evidence of cerebral edema. Skull base is intact. IMPRESSION: Mild atrophy. No acute intracranial abnormality. No change.
[2020-09-06 14:29] VITALS: PULSE 63; RESP 18
[2020-09-06 15:03] VITALS: BP 151/80
== END 2020-09-06 15:33 | disposition home or self-care (01) ==
LOC: EC 13:21
DX: G45.9 Transient cerebral ischemic attack, unspecified (principal); E11.9 Type 2 diabetes mellitus without complications; E78.5 Hyperlipidemia, unspecified; G47.30 Sleep apnea, unspecified; Z79.02 Long term (current) use of antithrombotics/antiplatelets; Z79.4 Long term (current) use of insulin; Z79.82 Long term (current) use of aspirin; Z86.73 Personal history of transient ischemic attack (TIA), and cerebral infarction without residual deficits; Z95.5 Presence of coronary angioplasty implant and graft
CPT/HCPCS: 36415; 70450; 71046; 80053; 82550; 83735; 83880; 84100; 84484; 85025; 85610; 85730; 93005; 96360; 99285

== ENCOUNTER 2020-09-09 10:59 | Inpatient (IN) | payer OTHER ==
--- NOTE | 2020-09-09 11:50 | ED ---
General Adult HPI - General Chief complaint: Altered Mental Status Stated complaint: revisit - confusion, weakness, vomiting Time Seen by Provider: 09/09/20 11:26 Source: patient Mode of arrival: ambulatory Limitations: no limitations - History of Present Illness Initial comments: Dictation was produced using [employer] dictation software. please excuse any grammatical, word or spelling errors. This patient was cared for during a federal and state declared state of emergency secondary to Covid 19 Chief Complaint: 60-year-old male recently admitted to the hospital for right- sided ataxia, subacute stroke presents emergency Department from PCPs office for admission. History of Present Illness: Chin is a 60-year-old male he was recently admitted to the hospital for acute CVA. Patient was seen by myself on September 04. Seen and evaluated by neurologist discharge. He presented again on Tuesday when he is discharged from the emergency room. He went to follow-up with his prior care physician's office today and was told to come to the emergency department to be admitted for further care. Patient has had strokelike symptoms over the course of the last week has not improved. He did have an MRI that showed subacute stroke. Patient has been at home and has been having persistent nausea vomiting and no improvement of his symptoms. He went to see his PCP doctor who reports that he has been having symptoms of intractable nausea vomiting and right-sided weakness. Dr. Gomes, patient's primary care physician request the patient be admitted to the hospital. The ROS documented in this emergency department record has been reviewed and confirmed by me. Those systems with pertinent positive or negative responses have been documented in the HPI. All other systems are other negative and/or noncontributory. PHYSICAL EXAM: General Impression: Alert and oriented x3, not in acute distress HEENT: Normocephalic atraumatic, extra-ocular movements intact, pupils equal and reactive to light bilaterally, mucous membranes moist. Cardiovascular: Heart regular rate and rhythm Chest: Able to complete full sentences, no retractions, no tachypnea Abdomen: abdomen soft, non-tender, non-distended, no organomegaly Musculoskeletal: Pulses present and equal in all extremities, no peripheral edema Motor: no focal deficits noted Neurological: CN II-XII grossly intact, no focal motor or sensory deficits noted, mild dysarthria Skin: Intact with no visualized rashes Psych: Normal affect and mood ED course: 60-year-old male sent in by primary care physician for persistent nausea vomiting and strokelike symptoms. Vital signs upon arrival are within acceptable limits. Physical examination is benign. Patient appears to be at [facility] from when I saw him 5 days ago. Laboratory evaluation obtained. Monocytosis of 11.2 neutrophils by 0.3. This likely secondary to stress. Coag panel is negative. Metabolic panel shows potassium 7.3. There is concern that this is a lab error. Pending potassium redraw. Glucose 295. Slight elevation of liver enzymes. Rest metabolic panel is unremarkable. Patient states that his symptoms have been baseline. At this point no indication for CT imaging at this time. He will be admitted per request by primary care physician. Case discussed with Dr. Driver who is willi to accept patients care. Potassium redraw of 6.0. Perhaps patient's symptoms are secondary to hyperkalemia. Patient will be given intravenous fluids. He'll be admitted for further medical monitoring. EKG interpretation: Ventricular rate 69, normal sinus rhythm,. 1:30, QRS 86, QTC 426. No MO prolongation, no QTC prolongation, no ST or T-wave changes noted. EKG compared to 09/06/2020 showing no changes. Overall, this EKG is unremarkable - Related Data Home Medications Medication Instructions Recorded Confirmed Aspirin 325 mg PO DAILY 06/27/14 09/09/20 Glimepiride [Amaryl] 2 mg PO BID 08/03/17 09/09/20 Ascorbic Acid [Vitamin C] 1,000 mg PO DAILY 09/04/20 09/09/20 Cholecalciferol [Vitamin D3 (25 25 mcg PO DAILY 09/04/20 09/09/20 Mcg = 1000 Iu)] Moexipril HCl [Univasc] 15 mg PO BID 09/04/20 09/09/20 Multivitamins, Thera [Multivitamin 1 tab PO DAILY 09/04/20 09/09/20 (formulary)] Insulin Glargine,Hum.rec.anlog 30 unit SQ HS 09/09/20 09/09/20 [Lantus Solostar] Previous Rx's Medication Instructions Recorded metFORMIN HCL 1,000 mg PO BID #0 07/02/14 Atorvastatin [Lipitor] 80 mg PO HS #30 tab 09/05/20 Clopidogrel [Plavix] 75 mg PO DAILY #30 tab 09/05/20 Allergies Allergy/AdvReac Type Severity Reaction Status Date / Time No Known Allergies Allergy Verified 09/09/20 12:42 Review of Systems ROS Statement: Those systems with pertinent positive or pertinent negative responses have been documented in the HPI. ROS Other: All systems not noted in ROS Statement are negative. Past Medical History Past Medical History: Chest Pain / Angina, CVA/TIA, Diabetes Mellitus, Hyperlipidemia, Sleep Apnea/CPAP/BIPAP Additional Past Medical History / Comment(s): IDDM type II, neuropathy bilateral hands/feet occasionally, past foot sores.. History of Any Multi-Drug Resistant Organisms: None Reported Past Surgical History: Hernia Repair Additional Past Surgical History / Comment(s): 2014 PCI with stent, umbilical hernia repair, colonoscopy Past Anesthesia/Blood Transfusion Reactions: No Reported Reaction Date of Last Stent Placement:: 2014 Past Psychological History: No Psychological Hx Reported Smoking Status: Never smoker Past Alcohol Use History: Occasional Past Drug Use History: None Reported - Past Family History Father Family Medical History: Vascular Disorder Additional Family Medical History / Comment(s): Father when pt was young of what pt thinks was a cerebral aneurysm. Mother Family Medical History: Cancer Additional Family Medical History / Comment(s): Mother of bone cancer at the age of 80yrs. General Exam Limitations: no limitations Course Vital Signs 09/09/20 09/09/20 09/09/20 11:18 12:24 13:00 Temperature 97.7 F Pulse Rate 72 71 69 Respiratory 20 18 18 Rate Blood Pressure 163/77 158/88 140/86 O2 Sat by Pulse 100 97 97 Oximetry Medical Decision Making - Lab Data Result diagrams: 09/09/20 13:21 09/09/20 13:21 Lab Results 09/09/20 09/09/20 09/09/20 Range/Units 11:59 11:59 11:59 WBC 11.2 H (3.8-10.6) k/uL RBC 5.38 (4.30-5.90) m/uL Hgb 16.3 (13.0-17.5) gm/dL Hct 48.0 (39.0-53.0) % MCV 89.2 (80.0-100.0) fL MCH 30.3 (25.0-35.0) pg MCHC 33.9 (31.0-37.0) g/dL RDW 12.4 (11.5-15.5) % Plt Count 263 (150-450) k/uL MPV 7.2 Neutrophils % 83 % Lymphocytes % 9 % Monocytes % 3 % Eosinophils % 4 % Basophils % 0 % Neutrophils # 9.3 H (1.3-7.7) k/uL Lymphocytes # 1.0 (1.0-4.8) k/uL Monocytes # 0.3 (0-1.0) k/uL Eosinophils # 0.5 (0-0.7) k/uL Basophils # 0.0 (0-0.2) k/uL PT 10.9 (9.0-12.0) sec INR 1.0 (<1.2) APTT 22.0 (22.0-30.0) sec Sodium (137-145) mmol/L Potassium (3.5-5.1) mmol/L Chloride (98-107) mmol/L Carbon Dioxide (22-30) mmol/L Anion Gap mmol/L BUN (9-20) mg/dL Creatinine (0.66-1.25) mg/dL Est GFR (CKD-EPI)AfAm (>60 ml/min/1.73 sqM) Est GFR (CKD-EPI)NonAf (>60 ml/min/1.73 sqM) Glucose (74-99) mg/dL Plasma Lactic Acid Dereje 1.8 (0.7-2.0) mmol/L Calcium (8.4-10.2) mg/dL Magnesium (1.6-2.3) mg/dL Total Bilirubin (0.2-1.3) mg/dL AST (17-59) U/L ALT (4-49) U/L Alkaline Phosphatase (38-126) U/L Troponin I (0.000-0.034) ng/mL Total Protein (6.3-8.2) g/dL Albumin (3.5-5.0) g/dL Lipase (23-300) U/L 09/09/20 09/09/20 09/09/20 Range/Units 11:59 12:40 13:21 WBC 12.3 H (3.8-10.6) k/uL RBC 5.20 (4.30-5.90) m/uL Hgb 15.9 (13.0-17.5) gm/dL Hct 46.1 (39.0-53.0) % MCV 88.7 (80.0-100.0) fL MCH 30.7 (25.0-35.0) pg MCHC 34.6 (31.0-37.0) g/dL RDW 12.4 (11.5-15.5) % Plt Count 271 (150-450) k/uL MPV 7.3 Neutrophils % 84 % Lymphocytes % 8 % Monocytes % 3 % Eosinophils % 4 % Basophils % 0 % Neutrophils # 10.3 H (1.3-7.7) k/uL Lymphocytes # 1.0 (1.0-4.8) k/uL Monocytes # 0.4 (0-1.0) k/uL Eosinophils # 0.4 (0-0.7) k/uL Basophils # 0.0 (0-0.2) k/uL PT (9.0-12.0) sec INR (<1.2) APTT (22.0-30.0) sec Sodium 133 L (137-145) mmol/L Potassium 7.3 H* (3.5-5.1) mmol/L Chloride 100 (98-107) mmol/L Carbon Dioxide 24 (22-30) mmol/L Anion Gap 9 mmol/L BUN 18 (9-20) mg/dL Creatinine 0.97 (0.66-1.25) mg/dL Est GFR (CKD-EPI)AfAm >90 (>60 ml/min/1.73 sqM) Est GFR (CKD-EPI)NonAf 86 (>60 ml/min/1.73 sqM) Glucose 295 H (74-99) mg/dL Plasma Lactic Acid Dereje (0.7-2.0) mmol/L Calcium 9.6 (8.4-10.2) mg/dL Magnesium 1.6 (1.6-2.3) mg/dL Total Bilirubin 1.1 (0.2-1.3) mg/dL AST 64 H (17-59) U/L ALT 91 H (4-49) U/L Alkaline Phosphatase 75 (38-126) U/L Troponin I <0.012 (0.000-0.034) ng/mL Total Protein 7.8 (6.3-8.2) g/dL Albumin 4.8 (3.5-5.0) g/dL Lipase 71 (23-300) U/L 09/09/20 Range/Units 13:21 WBC (3.8-10.6) k/uL RBC (4.30-5.90) m/uL Hgb (13.0-17.5) gm/dL Hct (39.0-53.0) % MCV (80.0-100.0) fL MCH (25.0-35.0) pg MCHC (31.0-37.0) g/dL RDW (11.5-15.5) % Plt Count (150-450) k/uL MPV Neutrophils % % Lymphocytes % % Monocytes % % Eosinophils % % Basophils % % Neutrophils # (1.3-7.7) k/uL Lymphocytes # (1.0-4.8) k/uL Monocytes # (0-1.0) k/uL Eosinophils # (0-0.7) k/uL Basophils # (0-0.2) k/uL PT (9.0-12.0) sec INR (<1.2) APTT (22.0-30.0) sec Sodium 136 L (137-145) mmol/L Potassium 6.0 H (3.5-5.1) mmol/L Chloride 100 (98-107) mmol/L Carbon Dioxide 26 (22-30) mmol/L Anion Gap 10 mmol/L BUN 18 (9-20) mg/dL Creatinine 0.90 (0.66-1.25) mg/dL Est GFR (CKD-EPI)AfAm >90 (>60 ml/min/1.73 sqM) Est GFR (CKD-EPI)NonAf >90 (>60 ml/min/1.73 sqM) Glucose 278 H (74-99) mg/dL Plasma Lactic Acid Dereje (0.7-2.0) mmol/L Calcium 9.7 (8.4-10.2) mg/dL Magnesium (1.6-2.3) mg/dL Total Bilirubin 1.1 (0.2-1.3) mg/dL AST 64 H (17-59) U/L ALT 89 H (4-49) U/L Alkaline Phosphatase 74 (38-126) U/L Troponin I (0.000-0.034) ng/mL Total Protein 7.8 (6.3-8.2) g/dL Albumin 4.7 (3.5-5.0) g/dL Lipase (23-300) U/L Disposition Clinical Impression: Weakness Disposition: ADMITTED IP TO THIS HOSP Condition: Fair Referrals: Jessica Barton MD [Primary Care Provider] - 1-2 days Decision Time: 13:55
[2020-09-09 12:10] LABS: Basophils % (A) 0 %; Eosinophils # (A) 0.5 k/uL (0-0.7); Eosinophils % (A) 4 %; HGB 16.3 gm/dL (13.0-17.5); Lymphocytes % (A) 9 %; MCH 30.3 pg (25.0-35.0); MCHC 33.9 g/dL (31.0-37.0); MCV 89.2 fL (80.0-100.0); Mean Platelet Volume 7.2; Monocytes # (A) 0.3 k/uL (0-1.0); Monocytes % (A) 3 %; Neutrophils # (A) 9.3 k/uL (1.3-7.7); Neutrophils % (A) 83 %; Platelet Count 263 k/uL (150-450); RBC 5.38 m/uL (4.30-5.90); RDW 12.4 % (11.5-15.5); WBC 11.2 k/uL (3.8-10.6)
[2020-09-09 12:28] LABS: Prothrombin Time 10.9 sec (9.0-12.0)
--- NOTE | 2020-09-09 12:40 | P.HPIM ---
History of Present Illness H&P Date: 09/09/20 Chief Complaint: Disbalance This is a 60-year-old white male who was sent into the emergency room by his primary care physician because of right-sided ataxia that persisted status post recent CVA. Patient states that he gets dizzy and vomits at times. He denies loss of consciousness. He denies focal weakness. He denies double vision but reports blurry vision at times. He denies headache. No hematuria dysuria hematemesis or hematochezia. Patient was recently discharged from the hospital after being admitted with acute CVA present on a brain MRI. Patient has been on statin aspirin and Plavix. Review of Systems 10 systems reviewed, pertinent positive and negative findings as in HPI. Chest pain, positive for ataxia and blurry vision. Past Medical History Past Medical History: Chest Pain / Angina, CVA/TIA, Diabetes Mellitus, Hyperlipidemia, Sleep Apnea/CPAP/BIPAP Additional Past Medical History / Comment(s): IDDM type II, neuropathy bilateral hands/feet occasionally, past foot sores.. History of Any Multi-Drug Resistant Organisms: None Reported Past Surgical History: Hernia Repair Additional Past Surgical History / Comment(s): 2014 PCI with stent, umbilical hernia repair, colonoscopy Past Anesthesia/Blood Transfusion Reactions: No Reported Reaction Date of Last Stent Placement:: 2014 Past Psychological History: No Psychological Hx Reported Smoking Status: Never smoker Past Alcohol Use History: Occasional Past Drug Use History: None Reported - Past Family History Father Family Medical History: Vascular Disorder Additional Family Medical History / Comment(s): Father when pt was young of what pt thinks was a cerebral aneurysm. Mother Family Medical History: Cancer Additional Family Medical History / Comment(s): Mother of bone cancer at the age of 80yrs. Medications and Allergies Home Medications Medication Instructions Recorded Confirmed Type Aspirin 325 mg PO DAILY 06/27/14 09/04/20 History metFORMIN HCL 1,000 mg PO BID #0 07/02/14 09/04/20 Rx Glimepiride [Amaryl] 2 mg PO BID 08/03/17 09/04/20 History Metoprolol Tartrate [Lopressor] 50 mg PO BID 08/03/17 09/04/20 History Ascorbic Acid [Vitamin C] 1,000 mg PO DAILY 09/04/20 09/04/20 History Cholecalciferol [Vitamin D3 (25 25 mcg PO DAILY 09/04/20 09/04/20 History Mcg = 1000 Iu)] Moexipril HCl [Univasc] 15 mg PO BID 09/04/20 09/04/20 History Multivitamins, Thera [Multivitamin 1 tab PO DAILY 09/04/20 09/04/20 History (formulary)] Atorvastatin [Lipitor] 80 mg PO HS #30 tab 09/05/20 Rx Clopidogrel [Plavix] 75 mg PO DAILY #30 tab 09/05/20 Rx Insulin Glargine,Hum.rec.anlog 30 unit SQ HS #0 09/05/20 09/04/20 Rx [Lantus Solostar] Allergies Allergy/AdvReac Type Severity Reaction Status Date / Time No Known Allergies Allergy Verified 09/06/20 13:33 Physical Exam Vitals: Vital Signs Temp Pulse Resp BP Pulse Ox 09/09/20 11:18 97.7 F 72 20 163/77 100 Intake and Output 09/08/20 09/09/20 09/09/20 22:59 06:59 14:59 Other: Weight 99.79 kg Constitutional: No acute distress, conversant, pleasant Eyes: Anicteric sclerae, moist conjunctiva, no lid-lag, PERRLA ENMT: NC/AT Neck:Supple, FROM, no masses Lungs: Clear to auscultation, Clear to percussion, Normal respiratory effort, no accessory muscle use Cardiovascular: Heart regular in rate and rhythm, No murmurs, gallops, or rubs no peripheral edema Abdominal: Soft Nontender, non distended, no guarding, no rebound or rigidity, Normoactive bowel sounds. Obese. Skin: Normal temperature, tone, texture, turgor, No induration No subcutaneous nodules, No rash, lesions, No ulcers Extremities:No digital cyanosis No clubbing, Pedal pulses intact and symmetrical Radial pulses intact and symmetrical Normal gait and station, No calf tenderness Psychiatric: Alert and oriented to person, place and time, Appropriate affect Intact judgement Neuro: Muscles Strength 5/5 in all 4 extremities, Sensation to light touch grossly present throughout, Cranial nerves II-XII grossly intact. No focal sensory deficits Results CBC & Chem 7: 09/09/20 11:59 Labs: Abnormal Lab Results - Last 24 Hours (Table) 09/09/20 Range/Units 11:59 WBC 11.2 H (3.8-10.6) k/uL Neutrophils # 9.3 H (1.3-7.7) k/uL Assessment and Plan Plan: 1. Recent CVA with ataxia but no focal weakness: Continue on aspirin Plavix and statin. Consult PT/OT. Repeat brain CT 2. Type 2 diabetes with hyperglycemia: Place on insulin sliding scale 3. Hyperlipidemia: Continue statin 4. Essential hypertension: Resume outpatient medications Toprol and moexipril 5. Coronary artery disease with prior stent placement: Continue outpatient me dications 6. Obstructive sleep apnea: Not on CPAP 7. Obesity BMI 34.5 Treatment plan discussed with the patient and his at bedside
[2020-09-09 12:58] LABS: ALT 91 U/L (4-49); AST 64 U/L (17-59); African American GFR (CKD) >90 (>60 ml/min/1.73 sqM); Albumin 4.8 g/dL (3.5-5.0); Alkaline Phosphatase 75 U/L (38-126); Anion Gap 9 mmol/L; Blood Urea Nitrogen 18 mg/dL (9-20); Calcium 9.6 mg/dL (8.4-10.2); Carbon Dioxide 24 mmol/L (22-30); Chloride 100 mmol/L (98-107); Glucose 295 mg/dL (74-99); Lipase 71 U/L (23-300); Magnesium 1.6 mg/dL (1.6-2.3); Non-African American GFR(CKD) 86 (>60 ml/min/1.73 sqM); Sodium 133 mmol/L (137-145); Total Bilirubin 1.1 mg/dL (0.2-1.3); Total Protein 7.8 g/dL (6.3-8.2)
[2020-09-09 13:04] LABS: Potassium 7.3 mmol/L (3.5-5.1)
[2020-09-09] MEDS ORDERED: NALOXONE 0.4 MG/ML 1 ML VIAL IV PRN (13:11)
[2020-09-09 13:27] LABS: Basophils % (A) 0 %; Eosinophils # (A) 0.4 k/uL (0-0.7); Eosinophils % (A) 4 %; HCT 46.1 % (39.0-53.0); HGB 15.9 gm/dL (13.0-17.5); Lymphocytes % (A) 8 %; MCH 30.7 pg (25.0-35.0); MCHC 34.6 g/dL (31.0-37.0); MCV 88.7 fL (80.0-100.0); Mean Platelet Volume 7.3; Monocytes # (A) 0.4 k/uL (0-1.0); Monocytes % (A) 3 %; Neutrophils # (A) 10.3 k/uL (1.3-7.7); Neutrophils % (A) 84 %; Platelet Count 271 k/uL (150-450); RDW 12.4 % (11.5-15.5); WBC 12.3 k/uL (3.8-10.6)
[2020-09-09] MEDS: SODIUM CHLORIDE 0.9% 1,000 ML IV SCH (13:40)
[2020-09-09 13:45] LABS: ALT 89 U/L (4-49); AST 64 U/L (17-59); African American GFR (CKD) >90 (>60 ml/min/1.73 sqM); Albumin 4.7 g/dL (3.5-5.0); Alkaline Phosphatase 74 U/L (38-126); Anion Gap 10 mmol/L; Blood Urea Nitrogen 18 mg/dL (9-20); Calcium 9.7 mg/dL (8.4-10.2); Carbon Dioxide 26 mmol/L (22-30); Chloride 100 mmol/L (98-107); Glucose 278 mg/dL (74-99); Non-African American GFR(CKD) >90 (>60 ml/min/1.73 sqM); Sodium 136 mmol/L (137-145); Total Bilirubin 1.1 mg/dL (0.2-1.3); Total Protein 7.8 g/dL (6.3-8.2)
--- NOTE | 2020-09-09 13:55 | CT ---
EXAMINATION TYPE: CT brain wo con DATE OF EXAM: 09/09/2020 COMPARISON: 09/06/2020 HISTORY: Dizziness and headache with vomiting. CT DLP: 1158.[address] of the brain was performed. The ventricles, basal cisterns and sulci overlying the cerebral convexities demonstrate mild enlargem ent. There is no evidence for intracranial hemorrhage or sulcal effacement. There is decreased attenuation about the periventricular white matter and deep white matter of both c erebral hemispheres, compatible with chronic small vessel ischemia. Differential diagnosis does inclu de demyelination. No mass effects are seen.No midline shift. Osseous calvarium is intact. If symptoms persist consider MRI. IMPRESSION: 1. Age related atrophic and chronic small vessel ischemic change without acute intracranial process s een at this time.
[2020-09-09 14:23] LABS: Appearance,Urine Clear (Clear); Bilirubin,Urine Negative (Negative); Blood,Urine Negative (Negative); Color,Urine Yellow; Glucose,Urine (UA) 4+ (Negative); Hyaline Casts,Urine 1 /lpf (0-2); Leukocyte Esterase,Urine Negative (Negative); Mucus,Urine Occasional /hpf; Nitrite,Urine Negative (Negative); Protein,Urine 1+ (Negative); Specific Gravity,Urine 1.025 (1.001-1.035); Urobilinogen,Urine <2.0 mg/dL (<2.0); WBC,Urine <1 /hpf (0-5)
[2020-09-09 14:25] LABS: Ketones,Urine 2+ (Negative)
[2020-09-09] MEDS: INSULIN DETEMIR (LEVEMIR) 100 UNIT/ML SYR SQ SCH (21:25)
[2020-09-09] MEDS: CLOPIDOGREL 75 MG TAB PO SCH (21:27)
[2020-09-09] MEDS: ATORVASTATIN 80 MG TAB PO SCH (21:28)
[2020-09-09 21:29] LABS: Glucose,Whole Blood 240 mg/dL (75-99)
[2020-09-10 05:55] LABS: Basophils % (A) 0 %; Eosinophils # (A) 0.5 k/uL (0-0.7); Eosinophils % (A) 5 %; HCT 44.9 % (39.0-53.0); HGB 14.9 gm/dL (13.0-17.5); Lymphocytes # (A) 2.2 k/uL (1.0-4.8); Lymphocytes % (A) 20 %; MCH 29.7 pg (25.0-35.0); MCHC 33.2 g/dL (31.0-37.0); MCV 89.4 fL (80.0-100.0); Mean Platelet Volume 7.1; Monocytes # (A) 0.6 k/uL (0-1.0); Monocytes % (A) 6 %; Neutrophils # (A) 7.2 k/uL (1.3-7.7); Neutrophils % (A) 68 %; Platelet Count 275 k/uL (150-450); RBC 5.02 m/uL (4.30-5.90); WBC 10.6 k/uL (3.8-10.6)
[2020-09-10 07:16] LABS: Glucose,Whole Blood 171 mg/dL (75-99)
[2020-09-10] MEDS ORDERED: lisinopriL 20 MG TAB PO SCH (09:00)
[2020-09-10] MEDS ORDERED: CLOPIDOGREL 75 MG TAB PO SCH (09:00)
[2020-09-10] MEDS ORDERED: SODIUM POLYSTYRENE SULFONATE 15 GM/60 ML BOTTLE PO STA (09:22)
--- NOTE | 2020-09-10 09:33 | P.PN ---
Subjective Progress Note Date: 09/10/20 Feels okay, no chest pain no abdominal pain, no nausea no vomiting no dizziness no shortness of breath Objective - Vital Signs Vital signs: Vital Signs Temp 97.7 F 09/10/20 04:25 Pulse 77 09/10/20 04:25 Resp 14 09/10/20 04:25 BP 154/68 09/10/20 04:25 Pulse Ox 95 09/10/20 04:25 Intake & Output 09/09/20 09/10/20 09/10/20 18:59 06:59 18:59 Intake Total 440 Balance 440 Weight 99.79 kg Intake: Intake, IV Titration 240 Amount Sodium Chloride 0.9% 1, 240 000 ml @ 20 mls/hr IV . Q24H [facility] Rx#:[id number] Oral 200 Other: Voiding Method Toilet Urinal # Voids 1 - Exam Constitutional: No acute distress, conversant, pleasant Eyes: Anicteric sclerae, moist conjunctiva, no lid-lag, PERRLA ENMT: NC/AT Neck:Supple, FROM, no masses Lungs: Clear to auscultation, Clear to percussion, Normal respiratory effort, no accessory muscle use Cardiovascular: Heart regular in rate and rhythm, No murmurs, gallops, or rubs no peripheral edema Abdominal: Soft Nontender, non distended Skin: Normal temperature Extremities:No digital cyanosis No clubbing, Pedal pulses intact and symmetrical Radial pulses intact and symmetrical Normal gait and station, No calf tenderness Psychiatric: Alert and oriented to person, place and time, Appropriate affect Intact judgement Neuro: Muscles Strength 5/5 in all 4 extremities, Sensation to light touch grossly present throughout, Cranial nerves II-XII grossly intact. No focal sensory deficits - Labs CBC & Chem 7: 09/10/20 05:30 09/09/20 13:21 Labs: Abnormal Lab Results - Last 24 Hours (Table) 09/09/20 09/09/20 09/09/20 Range/Units 11:59 12:40 13:21 WBC 11.2 H (3.8-10.6) k/uL Neutrophils # 9.3 H (1.3-7.7) k/uL Sodium 133 L (137-145) mmol/L Potassium 7.3 H* (3.5-5.1) mmol/L Glucose 295 H (74-99) mg/dL POC Glucose (mg/dL) (75-99) mg/dL AST 64 H (17-59) U/L ALT 91 H (4-49) U/L Urine Protein 1+ H (Negative) Urine Glucose (UA) 4+ H (Negative) Urine Ketones 2+ H (Negative) Urine Mucus Occasional H (None) /hpf 09/09/20 09/09/20 09/09/20 Range/Units 13:21 13:21 21:27 WBC 12.3 H (3.8-10.6) k/uL Neutrophils # 10.3 H (1.3-7.7) k/uL Sodium 136 L (137-145) mmol/L Potassium 6.0 H (3.5-5.1) mmol/L Glucose 278 H (74-99) mg/dL POC Glucose (mg/dL) 240 H (75-99) mg/dL AST 64 H (17-59) U/L ALT 89 H (4-49) U/L Urine Protein (Negative) Urine Glucose (UA) (Negative) Urine Ketones (Negative) Urine Mucus (None) /hpf 09/10/20 Range/Units 07:15 WBC (3.8-10.6) k/uL Neutrophils # (1.3-7.7) k/uL Sodium (137-145) mmol/L Potassium (3.5-5.1) mmol/L Glucose (74-99) mg/dL POC Glucose (mg/dL) 171 H (75-99) mg/dL AST (17-59) U/L ALT (4-49) U/L Urine Protein (Negative) Urine Glucose (UA) (Negative) Urine Ketones (Negative) Urine Mucus (None) /hpf Assessment and Plan Plan: 1. Recent CVA with ataxia but no focal weakness: Continue on aspirin Plavix and statin. Consult PT/OT. Repeated brain CT no acute findings. 2. Type 2 diabetes with hyperglycemia: Continue on insulin sliding scale 3. Hyperlipidemia: Continue statin 4. Essential hypertension: Resume outpatient medications Toprol and moexipril 5. Coronary artery disease with prior stent placement: Continue outpatient medications 6. Obstructive sleep apnea: Not on CPAP 7. Obesity BMI 34.5 8. Hyperkalemia: Potassium 7.3 yesterday decreased to 6 , pending labs today. Give Kayexalate and recheck. Disposition: Likely needing rehab, pending PT evaluation
[2020-09-10] MEDS: ASPIRIN 325 MG TAB PO SCH (11:28)
[2020-09-10] MEDS: ASCORBIC ACID 500 MG TAB PO SCH (11:28)
[2020-09-10 11:54] LABS: African American GFR (CKD) 85.3 (60.0-200.0); Albumin 4.3 g/dL (3.80-4.90); Albumin/Globulin Ratio 2.05 (1.60-3.17); Anion Gap 12.2 mmol/L (4.00-12.00); BUN/Creat Ratio 14.55 Ratio (12.00-20.00); Calcium 9.1 mg/dL (8.7-10.3); Carbon Dioxide 24.8 mmol/L (21.6-31.8); Globulin 2.1 g/dL (1.6-3.3); Non-African American GFR(CKD) 73.6 (60.0-200.0); Total Bilirubin 1.1 mg/dL (0.2-1.2); Total Protein 6.4 g/dL (6.2-8.2)
[2020-09-10 12:10] LABS: Glucose,Whole Blood 234 mg/dL (75-99)
[2020-09-10 13:39] LABS: African American GFR (CKD) >90 (>60 ml/min/1.73 sqM); Anion Gap 9 mmol/L; Blood Urea Nitrogen 15 mg/dL (9-20); Calcium 9.9 mg/dL (8.4-10.2); Carbon Dioxide 31 mmol/L (22-30); Chloride 98 mmol/L (98-107); Glucose 219 mg/dL (74-99); Non-African American GFR(CKD) 87 (>60 ml/min/1.73 sqM); Potassium 4.2 mmol/L (3.5-5.1); Sodium 138 mmol/L (137-145)
[2020-09-10] MEDS: SODIUM CHLORIDE 0.9% 1,000 ML IV SCH (16:28)
[2020-09-10 17:36] LABS: Glucose,Whole Blood 244 mg/dL (75-99)
[2020-09-10] MEDS: INSULIN ASPART (NovoLOG) 100 UNIT/ML VIAL SQ SCH ×2 (18:03→21:29)
[2020-09-10] MEDS ORDERED: cloNIDine HCL 0.1 MG TAB PO PRN (20:21)
[2020-09-10] MEDS: ATORVASTATIN 80 MG TAB PO SCH (21:28)
[2020-09-10] MEDS: CLOPIDOGREL 75 MG TAB PO SCH (21:28)
[2020-09-10 21:29] LABS: Glucose,Whole Blood 163 mg/dL (75-99)
[2020-09-10] MEDS: INSULIN DETEMIR (LEVEMIR) 100 UNIT/ML SYR SQ SCH (21:29)
[2020-09-10 21:59] VITALS: RESP 20
[2020-09-11 05:23] VITALS: BP 155/78; PULSE 71; TEMP 98.1
[2020-09-11 06:14] LABS: Basophils % (A) 0 %; Eosinophils # (A) 0.3 k/uL (0-0.7); Eosinophils % (A) 4 %; HGB 14.4 gm/dL (13.0-17.5); Lymphocytes # (A) 1.6 k/uL (1.0-4.8); Lymphocytes % (A) 19 %; MCH 30.3 pg (25.0-35.0); MCHC 34.2 g/dL (31.0-37.0); MCV 88.7 fL (80.0-100.0); Mean Platelet Volume 7.1; Monocytes # (A) 0.5 k/uL (0-1.0); Monocytes % (A) 6 %; Neutrophils % (A) 70 %; Platelet Count 246 k/uL (150-450); RBC 4.74 m/uL (4.30-5.90); RDW 12.2 % (11.5-15.5); WBC 8.6 k/uL (3.8-10.6)
[2020-09-11 07:28] LABS: Glucose,Whole Blood 190 mg/dL (75-99)
[2020-09-11] MEDS: ASPIRIN 325 MG TAB PO SCH (07:37)
[2020-09-11] MEDS: INSULIN ASPART (NovoLOG) 100 UNIT/ML VIAL SQ SCH (07:37)
[2020-09-11] MEDS: ASCORBIC ACID 500 MG TAB PO SCH (07:38)
--- NOTE | 2020-09-11 08:55 | P.DS ---
Providers Date of admission: 09/10/20 09:35 Expected date of discharge: 09/11/20 Attending physician: Rebekah Pandya DO Primary care physician: Jessica Barton [place] Hospital Course: HPI : This is a 60-year-old white male who was sent into the emergency room by his primary care physician because of right-sided ataxia that persisted status post recent CVA. Patient states that he gets dizzy and vomits at times. He denies loss of consciousness. He denies focal weakness. He denies double vision but reports blurry vision at times. He denies headache. No hematuria dysuria hematemesis or hematochezia. Patient was recently discharged from the hospital after being admitted with acute CVA present on a brain MRI. Patient has been on statin aspirin and Plavix. Hospital course and treatment: Patient was admitted to the hospital with ataxia and dizziness. He recently had a CVA and was admitted to the hospital and then discharged home. He was evaluated by PT OT, patient continued to improve. He was found to have hyperkalemia with a potassium of 7.3 upon admission, he was taken off SWAPNA inhibitor's and medically managed for hyperkalemia, potassium normalized prior to discharge. He feels much better and feels physically stronger. No further ataxia or dizziness. Repeated head CT was negative for acute findings. Cardiac enzymes were negative. He feels much better and will be discharged home. SWAPNA inhibitor is really discontinued and patient will be prescribed Norvasc. Patient Condition at Discharge: Stable Plan - Discharge Summary Discharge Rx Participant: No New Discharge Prescriptions: New amLODIPine [Norvasc] 10 mg PO DAILY #30 tablet Continue Aspirin 325 mg PO DAILY metFORMIN HCL 1,000 mg PO BID #0 Glimepiride [Amaryl] 2 mg PO BID Multivitamins, Thera [Multivitamin (formulary)] 1 tab PO DAILY Atorvastatin [Lipitor] 80 mg PO HS #30 tab Clopidogrel [Plavix] 75 mg PO DAILY #30 tab Cholecalciferol [Vitamin D3 (25 Mcg = 1000 Iu)] 25 mcg PO DAILY Ascorbic Acid [Vitamin C] 1,000 mg PO DAILY Insulin Glargine,Hum.rec.anlog [Lantus Solostar] 30 unit SQ HS Discontinued Moexipril HCl [Univasc] 15 mg PO BID Discharge Medication List Aspirin 325 mg PO DAILY 06/27/14 [History] metFORMIN HCL 1,000 mg PO BID #0 07/02/14 [Rx] Glimepiride [Amaryl] 2 mg PO BID 08/03/17 [History] Ascorbic Acid [Vitamin C] 1,000 mg PO DAILY 09/04/20 [History] Cholecalciferol [Vitamin D3 (25 Mcg = 1000 Iu)] 25 mcg PO DAILY 09/04/20 [Histo ry] Multivitamins, Thera [Multivitamin (formulary)] 1 tab PO DAILY 09/04/20 [History] Atorvastatin [Lipitor] 80 mg PO HS #30 tab 09/05/20 [Rx] Clopidogrel [Plavix] 75 mg PO DAILY #30 tab 09/05/20 [Rx] Insulin Glargine,Hum.rec.anlog [Lantus Solostar] 30 unit SQ HS 09/09/20 [History] amLODIPine [Norvasc] 10 mg PO DAILY #30 tablet 09/11/20 [Rx] Follow up Appointment(s)/Referral(s): Jessica Barton MD [Primary Care Provider] - 1-2 days Discharge Disposition: HOME SELF-CARE
[2020-09-11 09:46] LABS: African American GFR (CKD) 95.7 (60.0-200.0); Albumin 4.3 g/dL (3.80-4.90); Albumin/Globulin Ratio 2.15 (1.60-3.17); Anion Gap 8.9 mmol/L (4.00-12.00); Calcium 9.2 mg/dL (8.7-10.3); Carbon Dioxide 28.1 mmol/L (21.6-31.8); Non-African American GFR(CKD) 82.6 (60.0-200.0); Total Protein 6.3 g/dL (6.2-8.2)
== END 2020-09-11 10:25 | disposition home or self-care (01) | DRG 640 ==
LOC: EC 10:59 → 5NMEDONC 13:11 → OBSVTOIN 09-10 09:35
PROVIDERS: ADMIT Internal Medicine; ATTEND Internal Medicine
DX: E87.5 Hyperkalemia (principal); I63.9 Cerebral infarction, unspecified; Z86.73 Personal history of transient ischemic attack (TIA), and cerebral infarction without residual deficits; E11.65 Type 2 diabetes mellitus with hyperglycemia; E78.5 Hyperlipidemia, unspecified; I10 Essential (primary) hypertension; Z95.5 Presence of coronary angioplasty implant and graft; I25.10 Atherosclerotic heart disease of native coronary artery without angina pectoris; E66.9 Obesity, unspecified; Z68.35 Body mass index [BMI] 35.0-35.9, adult; G47.33 Obstructive sleep apnea (adult) (pediatric); H53.8 Other visual disturbances; Z79.4 Long term (current) use of insulin; E11.42 Type 2 diabetes mellitus with diabetic polyneuropathy; Z79.82 Long term (current) use of aspirin; Z79.899 Other long term (current) drug therapy; Z79.02 Long term (current) use of antithrombotics/antiplatelets
CPT/HCPCS: 36415; 70450; 80048; 80053; 81001; 83605; 83690; 83735; 84484; 85025; 85610; 85730; 87636; 93005; 99285

== ENCOUNTER 2020-09-26 07:31 | Day surgery (SDC) | payer OTHER ==
[2020-09-23 08:59] VITALS: BMI 34.3
[2020-09-26] MEDS ORDERED: SODIUM CHLORIDE 0.9% 500 ML 500 ML IV ONE (07:36)
[2020-09-26 07:59] LABS: Glucose,Whole Blood 177 mg/dL (75-99)
[2020-09-26 08:01] VITALS: TEMP 98.5
[2020-09-26] MEDS ORDERED: BENZOCAINE SPRAY 1 CAN MUCOUS MEM ONE ×2 (08:45→08:50)
[2020-09-26] MEDS ORDERED: fentaNYL (PF) 50 MCG/ML 2 ML AMP ONE (08:50)
[2020-09-26] MEDS ORDERED: fentaNYL (PF) 50 MCG/ML 2 ML AMP IVP ONE (09:06)
[2020-09-26] MEDS ORDERED: MIDAZOLAM 2 MG/2 ML VIAL IVP ONE (09:06)
[2020-09-26] MEDS ORDERED: SODIUM CHLORIDE 0.9% 1,000 ML IV SCH (10:00)
--- NOTE | 2020-09-26 10:02 | P.TEE ---
Indications for Procedure(s): TIA Date of Procedure: 09/26/20 Preoperative Diagnosis: History of TIA. Multiple risk factors of hypertension, diabetes, coronary artery disease, rule out Cardec source of emboli Postoperative Diagnosis: No definite cardiac source of emboli Procedure(s) Performed: JORGE Description of Procedure(s): INDICATION: This is a 60-year-old gentleman with history of diabetes, hypertension and coronary artery disease who was recently admitted to the hospital with symptoms of TIA. A neurology suggest that patient have a JORGE to rule out Cardec source of emboli. CONSENT: Informed consent was obtained from the patient verbally PROCEDURE: Patient was brought to the lab in a fasting state. He was prepped and draped in the usual fashion. Patient was given IV Versed 3 mg and fentanyl 50 g for sedation. The throat was sprayed with Hurricaine. A lubricated Omni probe was introduced into the oropharynx and was advanced into the esophagus. Multiple views were obtained both from stomach and esophagus. Color, pulsed and continuous with Doppler studies were done. Saline contrast bubble injection was also done. Patient tolerated the procedure well FINDINGS: . The aortic valve is tricuspid with normal opening excursion. No regurgitation noted. Mitral valve shows normal function with trace regurgitation. Tricuspid valve seems to function normally. The interatrial septum is intact without any spontaneous shunt. Injection of the saline contrast bubble. She did not show any crossing of the bubbles across the septum. The area. Left atrial appendage appeared to be free of any clot. The left ventricle function appeared within normal. The aorta showed mild to moderate plaque IMPRESSION: #1. No PFO #2. No clot in left atrial appendage. #3. Normal valve function. #4. Normal left ventricular function. #5. Mild to moderate plaque in the aorta PLAN: Continue with current medical therapy. Risk factor modification. Follow- up in the office in one week
[2020-09-26 11:07] VITALS: RESP 16
[2020-09-26 11:14] VITALS: BP 154/75; PULSE 68
== END 2020-09-26 10:51 | disposition home or self-care (01) ==
LOC: CATHCVL 07:31
PROVIDERS: ATTEND Internal Medicine Cardiovascular Disease
DX: I70.0 Atherosclerosis of aorta (principal); I25.10 Atherosclerotic heart disease of native coronary artery without angina pectoris; I10 Essential (primary) hypertension; E78.5 Hyperlipidemia, unspecified; Z20.822 Contact with and (suspected) exposure to COVID-19; Z95.5 Presence of coronary angioplasty implant and graft; E11.9 Type 2 diabetes mellitus without complications; Z86.73 Personal history of transient ischemic attack (TIA), and cerebral infarction without residual deficits; Z79.02 Long term (current) use of antithrombotics/antiplatelets; Z79.82 Long term (current) use of aspirin; Z79.4 Long term (current) use of insulin; Z79.899 Other long term (current) drug therapy
CPT/HCPCS: 93312; 93320; 93325; 87635; J2250; J3010

== ENCOUNTER → 2020-10-25 | Outpatient (CLI) | payer OTHER ==
[2020-10-25 12:11] LABS: HCT 41.9 % (39.6-50.0); HGB 13.3 g/dL (13.0-17.0); MCH 28.8 pg (27.0-32.0); MCHC 31.7 g/dL (32.0-37.0); MCV 90.7 fL (80.0-97.0); Mean Platelet Volume 10.3 fL (9.5-12.2); Platelet Count 322 X 10*3/uL (140-440); RBC 4.62 X 10*6/uL (4.40-5.60); RDW 11.9 % (11.5-14.5); WBC 10.63 X 10*3/uL (4.50-10.00)
[2020-10-25 13:11] LABS: Anion Gap 11.3 mmol/L (4.00-12.00); Carbon Dioxide 27.7 mmol/L (21.6-31.8); Chol/HDL Ratio 4.17; LDL Cholesterol,Calculated 86.6 mg/dL (0.0-131.0); Potassium 4.4 mmol/L (3.5-5.5); VLDL Calculation 24.4 mg/dL (5.00-40.00)
[2020-10-25 13:12] LABS: African American GFR (CKD) 95.7 (60.0-200.0); Albumin 4.7 g/dL (3.80-4.90); Albumin/Globulin Ratio 1.88 (1.60-3.17); Calcium 9.6 mg/dL (8.7-10.3); Globulin 2.5 g/dL (1.6-3.3); Non-African American GFR(CKD) 82.6 (60.0-200.0); Total Bilirubin 0.9 mg/dL (0.3-1.2); Total Protein 7.2 g/dL (6.2-8.2)
[2020-10-25 13:46] LABS: Cardiolipin Ab IgG Interp NEGATIVE (NEGATIVE); Cardiolipin Ab IgM Interp NEGATIVE (NEGATIVE); Cardiolipin IgA Antibody <2.0 U/mL; Cardiolipin IgM Antibody <1.5 U/mL
[2020-10-25 16:23] LABS: Hemoglobin A1C 9.1 % (4.0-6.0)
[2020-10-27 12:10] LABS: APTT 40 Sec(s) (<43); Dilute Russell Viper Venom 43 Sec(s) (<44)
[2020-10-28 10:34] LABS: Protein C (Activity) 138 % (71-138)
[2020-10-28 12:28] LABS: Free Protein S Antigen 130 % (57 - 171)
== END | disposition home or self-care (01) ==
LOC: LABWHC1 07:57
PROVIDERS: ATTEND Psychiatry & Neurology Neurology
DX: E78.5 Hyperlipidemia, unspecified (principal); I10 Essential (primary) hypertension; E11.40 Type 2 diabetes mellitus with diabetic neuropathy, unspecified; Z86.73 Personal history of transient ischemic attack (TIA), and cerebral infarction without residual deficits
CPT/HCPCS: 36415; 80053; 80061; 83036; 85027; 85303; 85306; 85613; 85730; 86147

== ENCOUNTER → 2021-03-05 | Outpatient (CLI) | payer OTHER ==
[2021-03-05 12:20] LABS: African American GFR (CKD) 101.7 (60.0-200.0); Albumin 4.3 g/dL (3.8-4.9); Albumin/Globulin Ratio 1.73 (1.60-3.17); Anion Gap 14.3 mmol/L (4.00-12.00); BUN/Creat Ratio 13.35 Ratio (12.00-20.00); Blood Urea Nitrogen 12.7 mg/dL (9.0-27.0); Calcium 9.1 mg/dL (8.7-10.3); Carbon Dioxide 24.3 mmol/L (21.6-31.8); Chol/HDL Ratio 3.93 Ratio; Globulin 2.5 g/dL (1.6-3.3); HDL Cholesterol 35.6 mg/dL (40.00-60.00); LDL Cholesterol,Calculated 80.6 mg/dL (0.0-131.0); Non-African American GFR(CKD) 87.8 (60.0-200.0); Potassium 4.2 mmol/L (3.5-5.5); Total Bilirubin 0.6 mg/dL (0.30-1.20); Total Protein 6.9 g/dL (6.2-8.2); VLDL Calculation 23.8 mg/dL (5.00-40.00)
== END | disposition home or self-care (01) ==
LOC: LABWHC1 07:10
PROVIDERS: ATTEND Internal Medicine Endocrinology, Diabetes & Metabolism
DX: E11.65 Type 2 diabetes mellitus with hyperglycemia (principal)
CPT/HCPCS: 36415; 80053; 80061; 82043; 82570; 83036; 84443

== ENCOUNTER → 2021-06-27 | Outpatient (CLI) | payer OTHER ==
[2021-06-27 12:23] LABS: ALT 21 U/L (10-49); AST 17 U/L (14-35); Albumin 4.3 g/dL (3.8-4.9); Albumin/Globulin Ratio 1.43 (1.60-3.17); Alkaline Phosphatase 56 U/L (41-126); Blood Urea Nitrogen 15.3 mg/dL (9.0-27.0); Calcium 9.5 mg/dL (8.7-10.3); Carbon Dioxide 24.4 mmol/L (20.0-27.5); Chloride 101 mmol/L (96-109); Glucose 108 mg/dL (70-110); LDL Cholesterol,Calculated 70.4 mg/dL (0.0-131.0); Non-African American GFR(CKD) 93.2 (60.0-200.0); Potassium 4.2 mmol/L (3.5-5.5); Sodium 139 mmol/L (135-145); Total Protein 7.3 g/dL (6.2-8.2)
== END | disposition home or self-care (01) ==
LOC: LABWHC1 08:08
PROVIDERS: ATTEND Internal Medicine Endocrinology, Diabetes & Metabolism
DX: E11.65 Type 2 diabetes mellitus with hyperglycemia (principal)
CPT/HCPCS: 36415; 80053; 80061; 82043; 82570; 83036; 84443

== ENCOUNTER → 2022-02-06 | Outpatient (CLI) | payer BC ==
[2022-02-06 11:44] LABS: ALT 33 U/L (10-49); AST 23 U/L (14-35); African American GFR (CKD) 95.1 (60.0-200.0); Albumin 4.5 g/dL (3.8-4.9); Albumin/Globulin Ratio 1.96 (1.60-3.17); Alkaline Phosphatase 58 U/L (41-126); Calcium 9.4 mg/dL (8.7-10.3); Carbon Dioxide 27.3 mmol/L (20.0-27.5); Chloride 101 mmol/L (96-109); Chol/HDL Ratio 3.51 Ratio; Globulin 2.3 g/dL (1.6-3.3); Glucose 142 mg/dL (70-110); LDL Cholesterol,Calculated 78.5 mg/dL (0.0-131.0); Potassium 4.5 mmol/L (3.5-5.5); Sodium 141 mmol/L (135-145); Total Protein 6.8 g/dL (6.2-8.2)
== END | disposition home or self-care (01) ==
LOC: LABWHC1 08:10
PROVIDERS: ATTEND Internal Medicine Interventional Cardiology
DX: E78.2 Mixed hyperlipidemia (principal)
CPT/HCPCS: 36415; 80053; 80061

== ENCOUNTER → 2023-08-20 | Outpatient (CLI) | payer BC ==
[2023-08-20 13:51] LABS: ALT 27 U/L (10-49); AST 18 U/L (14-35); Chol/HDL Ratio 3.62 Ratio; LDL Cholesterol,Calculated 76.6 mg/dL (0.0-131.0)
== END | disposition home or self-care (01) ==
LOC: LABWHC1 08:01
PROVIDERS: ATTEND Internal Medicine Interventional Cardiology
DX: E78.2 Mixed hyperlipidemia (principal)
CPT/HCPCS: 36415; 80061; 84450; 84460

== ENCOUNTER → 2023-11-21 | Outpatient (CLI) | payer BC ==
[2023-11-21 11:04] LABS: ALT 27 U/L (10-49); AST 19 U/L (14-35); Albumin 4.5 g/dL (3.8-4.9); Albumin/Globulin Ratio 2.14 Ratio (1.60-3.17); Alkaline Phosphatase 57 U/L (41-126); Carbon Dioxide 21.3 mmol/L (21.6-31.8); Chloride 105 mmol/L (96-109); Chol/HDL Ratio 3.22 Ratio; Globulin 2.1 g/dL (1.6-3.3); Glucose 170 mg/dL (70-110); LDL Cholesterol,Calculated 73.7 mg/dL (0.0-131.0); Potassium 4.5 mmol/L (3.5-5.5); Sodium 139 mmol/L (135-145); Total Bilirubin 0.5 mg/dL (0.3-1.2); Total Protein 6.6 g/dL (6.2-8.2); VLDL Calculation 19.98 mg/dL (5.00-40.00)
== END | disposition home or self-care (01) ==
LOC: LABWHC1 06:52
PROVIDERS: ATTEND Internal Medicine Interventional Cardiology
DX: E78.2 Mixed hyperlipidemia (principal)
CPT/HCPCS: 36415; 80053; 80061

== ENCOUNTER → 2024-01-21 | Outpatient (CLI) | payer BC ==
[2024-01-21 13:06] LABS: Urine Creatinine 74.7 mg/dL (39.0-259.0)
[2024-01-21 13:16] LABS: ALT 32 U/L (10-49); AST 21 U/L (14-35); Albumin 4.5 g/dL (3.8-4.9); Albumin/Globulin Ratio 1.96 Ratio (1.60-3.17); Alkaline Phosphatase 59 U/L (41-126); BUN/Creat Ratio 19.18 Ratio (12.00-20.00); Blood Urea Nitrogen 21.1 mg/dL (9.0-27.0); Calcium 9.5 mg/dL (8.7-10.3); Carbon Dioxide 26.3 mmol/L (21.6-31.8); Chloride 101 mmol/L (96-109); Chol/HDL Ratio 4.01 Ratio; Globulin 2.3 g/dL (1.6-3.3); Glucose 198 mg/dL (70-110); LDL Cholesterol,Calculated 84.7 mg/dL (0.0-131.0); Potassium 4.9 mmol/L (3.5-5.5); Sodium 140 mmol/L (135-145); Total Bilirubin 0.7 mg/dL (0.3-1.2); Total Protein 6.8 g/dL (6.2-8.2)
== END | disposition home or self-care (01) ==
LOC: LABWHC1 07:55
PROVIDERS: ATTEND Internal Medicine Endocrinology, Diabetes & Metabolism
DX: E11.65 Type 2 diabetes mellitus with hyperglycemia (principal)
CPT/HCPCS: 36415; 80053; 80061; 82043; 82570; 83036; 84443

== ENCOUNTER → 2024-09-01 | Outpatient (CLI) | payer BC ==
[2024-09-01 14:15] LABS: BUN/Creat Ratio 18.18 Ratio (12.00-20.00); Chloride 104 mmol/L (96-109); Chol/HDL Ratio 3.28 Ratio; Glucose 195 mg/dL (70-110); LDL Cholesterol,Calculated 61.9 mg/dL (0.0-131.0); Sodium 140 mmol/L (135-145)
[2024-09-01 14:16] LABS: ALT 27 U/L (10-49); AST 21 U/L (14-35); Albumin 4.2 g/dL (3.8-4.9); Albumin/Globulin Ratio 1.83 Ratio (1.60-3.17); Alkaline Phosphatase 50 U/L (41-126); Calcium 9.2 mg/dL (8.7-10.3); Globulin 2.3 g/dL (1.6-3.3); Total Bilirubin 0.6 mg/dL (0.3-1.2); Total Protein 6.5 g/dL (6.2-8.2)
== END | disposition home or self-care (01) ==
LOC: LABWHC1 08:09
PROVIDERS: ATTEND Internal Medicine Interventional Cardiology
DX: I10 Essential (primary) hypertension (principal); E78.2 Mixed hyperlipidemia
CPT/HCPCS: 36415; 80053; 80061